=== PATIENT | female | born 1970 | race Hispanic/Latino ===

== ENCOUNTER 2018-04-04 16:55 | Observation (INO) | payer MEDICARE ==
[~2018-04-04] VITALS: Ht 157.5 cm; Wt 55.4 kg
--- OUTSIDE RECORDS SUMMARY | 2018-04-04 16:57 | XMS REPORT ---
Author Author Soniya Gonzalez [facility] eClinicalWorks Address Unknown Phone Unavailable Care Team Providers Care Billiard Table Repairer Name Role Phone Soniya Gonzalez Unavailable Allergies, Adverse Reactions, Alerts Substance Reaction Event Type Sudafed jitters Drug Allergy Amoxicillin hives/vomiting Drug Allergy Problems Problem Type Condition Code Onset Dates Condition Status Problem Autoimmune hepatitis K75.4 Active Problem Lupus M32.9 Active Problem Polyarthritis M13.0 Active Problem Psoriasis L40.9 Active Assessment Polyarthritis M13.0 Active Medications Medication Code System Code Instructions Start Date End Date Status Dosage Amagon [facility] [address]-02 10-325 MG Orally every 6 hrs Active 1 tablet as needed Medrol Dose Eze [facility] 30133471178 4mg Orally once a day December 04, 2016 Active as directed Otezla [facility] [address]-53 30 MG Orally Twice a day Active 1 tablet Ciprofloxacin HCl [facility] [address]-97 500 MG Orally Twice a day December 10, 2016 Active 1 tablet Vital Signs Date/Time: 2016 Cardiac Monitoring Heart Rate 86 /min Blood Pressure Diastolic 70 mm Hg Blood Pressure Systolic 124 mm Hg Temperature 97.8 F Results No Known Results Summary Purpose eClinicalWorks Submission
--- OUTSIDE RECORDS SUMMARY | 2018-04-04 16:57 | XMS REPORT | Continuity of Care Document ---
Author Author [facility] Address Unknown Phone Unavailable Problems Problem Status Onset Date Classification Date Reported Comments Source Lupus Active Problem 09/08/2017 Saurabh Garcia Psoriasis Active Problem 09/08/2017 Saurabh Garcai Polyarthritis Active Problem 09/08/2017 Saurabh Garcia Autoimmune hepatitis Active Problem 09/08/2017 Saurabh Garcia Medications Medication Details Route Status Patient Instructions Ordering Provider Order Date Source Ciprofloxacin HCl 1 tablet Orally Active 500 MG Orally Twice a day Gonzalez 12/10/2016 Saurabh Garcia Medrol Dose Eze as directed Orally Active 4mg Orally once a day Gonzalez 12/04/2016 Saurabh Garcia [place] 1 tablet as needed Orally Active 10-325 MG Orally every 6 hrs Harrah Saurabheugenio Garcia Otezla 1 tablet Orally Active 30 MG Orally Twice a day Harrah Saurabh Garica Allergies, Adverse Reactions, Alerts Substance Category Reaction Severity Reaction type Status Date Reported Comments Source Sudafed Adverse Reaction jitters Adverse Reaction Active 2016 Saurabh Garcia Amoxicillin Adverse Reaction hives/vomiting Adverse Reaction Active 2016 Saurabh Garcia Immunizations Immunization Date Given Site Status Last Updated Comments Source Results Order Name Results Value Reference Range Date Interpretation Comments Source Vital Signs Vital Sign Value Date Comments Source Heart Rate 86 2016 Saurabh Garcia Diastolic (mm Hg) 70 2016 Saurabh Garcia Systolic (mm Hg) 124 2016 Saurabh Garcia Temperature Oral (F) 97.8 F 2016 Saurabh Garcia Encounters Location Location Details Encounter Type Encounter Number Reason For Visit Attending Provider ADM Date DC Date Status Source Procedures Procedure Code Date Perfomer Comments Source
--- OUTSIDE RECORDS SUMMARY | 2018-04-04 16:57 | XMS REPORT ---
Author Author Sanjiv Garcia Organization eClinicalWorks Address Unknown Phone Unavailable Care Team Providers Care Resin Coater Name Role Phone Sanjiv Garcia CP Unavailable Allergies No Known Allergies Problems Problem Type Condition Code Onset Dates Condition Status Problem Autoimmune hepatitis K75.4 Active Problem Lupus M32.9 Active Problem Polyarthritis M13.0 Active Problem Psoriasis L40.9 Active Medications No Known Medications Results No Known Results Summary Purpose eClinicalWorks Submission
--- OUTSIDE RECORDS SUMMARY | 2018-04-04 16:57 | XMS REPORT ---
Author Author Sanjiv Garcia Organization eClinicalWorks Address Unknown Phone Unavailable Care Team Providers Care Track Template Maker Name Role Phone Sanjiv Garcia CP Unavailable Allergies No Known Allergies Problems Problem Type Condition Code Onset Dates Condition Status Problem Lupus M32.9 Active Problem Psoriasis L40.9 Active Problem Polyarthritis M13.0 Active Problem Autoimmune hepatitis K75.4 Active Medications No Known Medications Results No Known Results Summary Purpose eClinicalWorks Submission
[2018-04-04] MEDS ORDERED: SODIUM CHLORIDE 0.9% 1000ML 1,000 ML IV STA (17:06)
[2018-04-04] MEDS ORDERED: DICYCLOMINE HCL 20 MG/2 ML VIAL IM ONE (17:15)
[2018-04-04] MEDS ORDERED: PROMETHAZINE HCL (IM) 25 MG/ML VIAL IM ONE (17:15)
[2018-04-04] MEDS ORDERED: KETOROLAC TROMETHAMINE 30 MG/ML VIAL IV STA (18:08)
[2018-04-04] MEDS ORDERED: ONDANSETRON HCL 4 MG ORAL DISINTEGRATING TAB PO NR (18:45)
[2018-04-04 18:47] LABS: ALANINE AMINOTRANSFERASE 32 IU/L (0-55); ALBUMIN 4.9 g/dL (3.5-5.0); ALBUMIN/GLOBULIN RATIO 1.3 (0.8-2.0); ALKALINE PHOSPHATASE 108 IU/L (40-150); ANION GAP 23.7 mmol/L (8-16); BLOOD UREA NITROGEN 9 mg/dL (7-26); BUN/CREATININE RATIO 11 (6-25); CALCIUM 9.9 mg/dL (8.4-10.2); CARBON DIOXIDE 18 mmol/L (22-29); CHLORIDE 103 mmol/L (98-107); CREATININE, SERUM 0.84 mg/dL (0.57-1.11); EST GLOMERULAR FILTRATION RATE > 60 ML/MIN (60-); GLUCOSE 137 mg/dL (74-118); LIPASE 18 U/L (8-78); POTASSIUM 3.7 mmol/L (3.5-5.1); SODIUM 141 mmol/L (136-145)
[2018-04-04] MEDS ORDERED: METOCLOPRAMIDE HCL 10 MG/2ML VIAL IV ONE (19:15)
[2018-04-04] MEDS ORDERED: DIPHENHYDRAMINE HCL INJ 50 MG/ML VIAL IV ONE (19:15)
[2018-04-04] MEDS ORDERED: MORPHINE SULFATE 5 MG/ML VIAL IV ONE (20:30)
--- NOTE | 2018-04-04 20:34 | Diagnostic Imaging Report ---
EXAM: CT ABDOMEN AND PELVIS WITH IV CONTRAST INDICATION: Nausea, vomiting, abdominal pain COMPARISON: None TECHNIQUE: The abdomen and pelvis were scanned using a multidetector helical scanner. Coronal and sagittal reformations were obtained. Dose modulation, iterative reconstruction, and/or weight based adjustment of the mA/kV was utilized to reduce the radiation dose to as low as reasonably achievable. Routine protocol performed. IV Contrast: 100 cc Isovue-370 Oral Contrast: None CTDIvol has been reviewed. It is below the limits set by the Radiation Protocol Committee (RPC). FINDINGS: LOWER THORAX: No consolidations LIVER: No masses BILIARY: Cholecystectomy. No ductal dilation. SPLEEN: No masses PANCREAS: No masses ADRENALS: No nodules KIDNEYS: No enhancing masses. No hydronephrosis. GI TRACT: No wall thickening or obstruction. Normal appendix. VESSELS: Unremarkable PERITONEUM/RETROPERITONEUM: No free air or fluid LYMPH NODES: No lymphadenopathy REPRODUCTIVE ORGANS: Hysterectomy. Normal ovaries. BLADDER: Normal SOFT TISSUES: Bilateral breast implants. BONES: No suspicious bone lesions. IMPRESSION: Normal CT of the abdomen and pelvis. Signed by: Dr. Noelle Diaz M.D. on 04/04/2018 8:31 PM
--- OUTSIDE RECORDS SUMMARY | 2018-04-04 20:39 | XMS REPORT ---
Author Author [facility] Address Unknown Phone Unavailable Care Team Providers Care Fire Medic Name Role Phone Naif EDWARD Unavailable Unavailable Problems This patient has no known problems. Allergies, Adverse Reactions, Alerts This patient has no known allergies or adverse reactions. Medications This patient has no known medications. Results Test Description Test Time Test Comments Text Results Atomic Results Result Comments CT ABD/PEL WITH CONTRAST-HOPD 2018-04-04 20:24:00 [place] [id number] Patient Name: JANETTE SONG MR #: [id number] : 1970 Age/Sex: 47/F Req #: [id number] Adm Physician: Ordered by: IRTA EDWARD MD Report #: [id number] Location: [facility] Room/Bed: Procedure: [id number] HOPD/CT ABD/PEL WITH CONTRAST-HOPD Exam Date: 04/04/18 Exam Time: 1956 REPORT STATUS: Signed EXAM: CT ABDOMEN AND PELVIS WITH IV CONTRAST INDICATION: Nausea, vomiting, abdominal pain COMPARISON: None TECHNIQUE: The abdomen and pelvis were scanned using a multidetector helical scanner. Coronal and sagittal reformations were obtained. Dose modulation, iterative reconstruction, and/or weight based adjustment of the mA/kV was utilized to reduce the radiation dose to as low as reasonably achievable. Routine protocol performed. IV Contrast: 100 cc Isovue-370 Oral Contrast: None CTDIvol has been reviewed. It is below the limits set by the Radiation Protocol Committee (RPC). FINDINGS: LOWER THORAX: No consolidations LIVER: No masses BILIARY: Cholecystectomy. No ductal dilation. SPLEEN: No masses PANCREAS: No masses ADRENALS: No nodules KIDNEYS: No enhancing masses. No hydronephrosis. GI TRACT: No wall thickening or obstruction. Normal appendix. VESSELS: Unremarkable PERITONEUM/RETROPERITONEUM: No free air or fluid LYMPH NODES: No lymphadenopathy REPRODUCTIVE ORGANS: Hysterectomy. Normal ovaries. BLADDER: Normal SOFT TISSUES: Bilateral breast implants. BONES: No suspicious bone lesions. IMPRESSION: Normal CT of the abdomen and pelvis. Signed by: Dr. Manuel Diaz M.D. on 04/04/2018 8:31 PM Dictated By: MANUEL DIAZ MD 30 Transcribed By: CAMILO on 04/04/182030 COPY TO: RITA EDWARD MD
[2018-04-04 22:15] VITALS: BP 177/82
[2018-04-04] MEDS ORDERED: SODIUM CHLORIDE 0.9% 50ML 50 ML ONE (23:02)
[2018-04-04] MEDS: SODIUM CHLORIDE 0.9% 1000ML 1,000 ML IV SCH (23:13)
[2018-04-04] MEDS: PROMETHAZINE HCL (IM) 25 MG/ML VIAL IM PRN (23:13)
[2018-04-04 23:27] LABS: BASOPHILS % 0.2 % (0.0-1.0); HEMATOCRIT 33.9 % (34.2-44.1); HEMOGLOBIN 11.9 g/dL (12.0-16.0); LYMPHOCYTES # (AUTO) 0.8 (1.0-3.2); MEAN CORPUSCULAR HEMOGLOBIN 33.2 pg (28-32); MEAN CORPUSCULAR HGB CONC 35.1 g/dL (31-35); MEAN CORPUSCULAR VOLUME 94.7 fL (81-99); MONOCYTES # (AUTO) 0.1 (0.2-0.8); NEUTROPHILS # (AUTO) 12.2 (2.1-6.9); NEUTROPHILS % 92.4 % (38.7-80.0); PLATELET COUNT 277 x10e3/uL (140-360); RED BLOOD COUNT 3.58 x10e6/uL (3.6-5.1); RED CELL DISTRIBUTION WIDTH 11.9 % (11.7-14.4)
[2018-04-04 23:39] VITALS: BP 177/82
[2018-04-05] VITALS (8 sets, daily range): BP systolic 142–181; BP diastolic 73–89
[2018-04-05] MEDS: ACETAMINOPHEN 1000 MG/100 ML IV PRN ×2 (00:57→07:00)
[2018-04-05] MEDS ORDERED: SODIUM CHLORIDE 0.9% 50ML 50 ML ONE ×3 (03:34→20:40)
[2018-04-05] MEDS: PROMETHAZINE HCL (IM) 25 MG/ML VIAL IM PRN ×2 (03:37→07:55)
[2018-04-05] MEDS: HYDRALAZINE HCL 20 MG/ML VIAL IV PRN ×2 (04:19→16:39)
[2018-04-05] MEDS: SODIUM CHLORIDE 0.9% 1000ML 1,000 ML IV SCH ×4 (05:26→21:20)
[2018-04-05] MEDS: LEVOFLOXACIN 500MG/D5W 100ML 100 ML IV SCH (05:26)
[2018-04-05] MEDS ORDERED: MORPHINE SULFATE 2 MG/ML SYR ONE (09:12)
[2018-04-05] MEDS: MORPHINE SULFATE 2 MG/ML SYR IV PRN ×2 (09:23→13:47)
[2018-04-05] MEDS: ONDANSETRON HCL INJ 2 MG/ML VIAL IV PRN ×2 (13:47→17:32)
[2018-04-05] MEDS ORDERED: DIPHENHYDRAMINE HCL INJ 50 MG/ML VIAL IV PRN (16:30)
[2018-04-05] MEDS ORDERED: LORAZEPAM INJ 2 MG/ML VIAL IV ONE (19:15)
[2018-04-05] MEDS ORDERED: HYDROMORPHONE 1MG/1ML INJ IV PRN (19:15)
[2018-04-05] MEDS ORDERED: IOPAMIDOL 370 MG/ML 200 ML INFUS..BTL INJ ONE (20:40)
--- NOTE | 2018-04-05 20:43 | Diagnostic Imaging Report ---
EXAM: ABDOMEN-1VIEW (KUB) DATE: 04/05/2018 6:54 PM INDICATION: Emesis COMPARISON: 04/04/2018 CT, no report available FINDINGS: Bowel Gas Pattern: Non-obstructive. Pneumoperitoneum: None. Suspicious Calcifications: None. Other: Cholecystectomy clips. IMPRESSION: No acute findings. Signed by: Dr. Teto Sol MD on 04/05/2018 8:40 PM
[2018-04-05] MEDS: PANTOPRAZOLE 40 MG 10ML VIAL IV SCH (21:26)
[2018-04-05] MEDS: HYDROMORPHONE 2MG/ML 2 MG/ML ML IV PRN (21:26)
[2018-04-06] VITALS (7 sets, daily range): BP systolic 141–159; BP diastolic 72–85
[2018-04-06] MEDS: HYDROMORPHONE 2MG/ML 2 MG/ML ML IV PRN ×4 (01:48→20:45)
[2018-04-06] MEDS: SODIUM CHLORIDE 0.9% 1000ML 1,000 ML IV SCH ×3 (04:20→18:24)
[2018-04-06] MEDS: LEVOFLOXACIN 500MG/D5W 100ML 100 ML IV SCH (05:00)
[2018-04-06 05:29] LABS: BASOPHILS % 0.1 % (0.0-1.0); HEMOGLOBIN 12.2 g/dL (12.0-16.0); LYMPHOCYTES # (AUTO) 2.7 (1.0-3.2); LYMPHOCYTES % 18.8 % (18.0-39.1); MEAN CORPUSCULAR HEMOGLOBIN 33.4 pg (28-32); MEAN CORPUSCULAR HGB CONC 34.9 g/dL (31-35); MEAN CORPUSCULAR VOLUME 95.9 fL (81-99); MONOCYTES % 7.2 % (4.4-11.3); NEUTROPHILS # (AUTO) 10.3 (2.1-6.9); NEUTROPHILS % 73.4 % (38.7-80.0); PLATELET COUNT 292 x10e3/uL (140-360); RED BLOOD COUNT 3.65 x10e6/uL (3.6-5.1); RED CELL DISTRIBUTION WIDTH 12.4 % (11.7-14.4)
[2018-04-06 05:56] LABS: ALANINE AMINOTRANSFERASE 28 IU/L (0-55); ALBUMIN 3.7 g/dL (3.5-5.0); ALBUMIN/GLOBULIN RATIO 1.5 (0.8-2.0); ALKALINE PHOSPHATASE 74 IU/L (40-150); ANION GAP 11.3 mmol/L (8-16); BLOOD UREA NITROGEN 6 mg/dL (7-26); BUN/CREATININE RATIO 8 (6-25); CALCIUM 8.8 mg/dL (8.4-10.2); CARBON DIOXIDE 26 mmol/L (22-29); CHLORIDE 104 mmol/L (98-107); CREATININE, SERUM 0.72 mg/dL (0.57-1.11); EST GLOMERULAR FILTRATION RATE > 60 ML/MIN (60-); GLUCOSE 119 mg/dL (74-118); POTASSIUM 3.3 mmol/L (3.5-5.1); SODIUM 138 mmol/L (136-145)
[2018-04-06 06:15] LABS: MAGNESIUM 1.8 MG/DL (1.3-2.1)
[2018-04-06] MEDS: PANTOPRAZOLE 40 MG 10ML VIAL IV SCH ×2 (08:19→21:10)
[2018-04-06] MEDS: ONDANSETRON HCL INJ 2 MG/ML VIAL IV PRN ×3 (09:10→20:40)
[2018-04-06 09:11] LABS: BILIRUBIN,URINE NEGATIVE (NEGATIVE); CLARITY,URINE CLEAR (CLEAR); COLOR,URINE YELLOW (YELLOW); KETONES,URINE 1+ (NEGATIVE); LEUKOCYTE ESTERASE ,URINE NEGATIVE (NEGATIVE); NITRITE,URINE NEGATIVE (NEGATIVE); PROTEIN,URINE DIPSTICK NEGATIVE (NEGATIVE); URINE UROBILINOGEN 0.2 mg/dL (0.2 - 1)
[2018-04-06] MEDS: LORAZEPAM INJ 2 MG/ML VIAL IV PRN ×2 (09:11→23:07)
[2018-04-06 09:24] LABS: BACTERIA,URINE RARE /HPF
[2018-04-06 09:25] LABS: EPITHELIAL CELLS,URINE RARE /LPF
[2018-04-07] VITALS (7 sets, daily range): BP systolic 117–148; BP diastolic 60–91
[2018-04-07] MEDS: SODIUM CHLORIDE 0.9% 1000ML 1,000 ML IV SCH ×3 (01:51→14:50)
[2018-04-07] MEDS: LEVOFLOXACIN 500MG/D5W 100ML 100 ML IV SCH (05:17)
[2018-04-07] MEDS: PANTOPRAZOLE 40 MG 10ML VIAL IV SCH (08:10)
[2018-04-07] MEDS: ONDANSETRON HCL INJ 2 MG/ML VIAL IV PRN ×2 (08:10→12:04)
[2018-04-07] MEDS: LORAZEPAM INJ 2 MG/ML VIAL IV PRN (08:10)
[2018-04-07] MEDS: HYDROMORPHONE 2MG/ML 2 MG/ML ML IV PRN ×2 (08:10→12:04)
[2018-04-07] MEDS ORDERED: FENTANYL CITRATE/PF 100MCG/2 ML INJ ONE (12:00)
[2018-04-07] MEDS ORDERED: MIDAZOLAM HCL 2 MG/2 ML VIAL ONE (12:00)
[2018-04-07] MEDS ORDERED: PROPOFOL IV EMULSION 10 MG/ML 20 ML VIAL ONE (17:25)
== END 2018-04-07 18:33 | disposition home or self-care (01) ==
LOC: FSED 16:55 → ERHOLD 20:12 → IMCU 22:03
PROVIDERS: ADMIT Internal Medicine; ATTEND Internal Medicine
DX: K21.0 Gastro-esophageal reflux disease with esophagitis (principal); E86.0 Dehydration; M32.9 Systemic lupus erythematosus, unspecified; I10 Essential (primary) hypertension; Z82.49 Family history of ischemic heart disease and other diseases of the circulatory system; Z88.1 Allergy status to other antibiotic agents; Z88.5 Allergy status to narcotic agent; K29.70 Gastritis, unspecified, without bleeding; K44.9 Diaphragmatic hernia without obstruction or gangrene
CPT/HCPCS: 36415 ×2; 43239; 74018; 74177; 80053 ×3; 81001; 81003; 82150; 83690 ×2; 83735; 85025 ×3; 88305; 88312; 99284; G0378 ×4; J0131; J0360; J0500; J1170 ×3; J1200 ×2; J1885; J1956 ×3; J2060 ×3; J2250; J2270 ×2; J2405 ×3; J2550 ×2; J2704; J2765; J7030 ×4; Q9967

== ENCOUNTER 2018-10-20 21:30 | Emergency (ER) | payer MEDICARE ==
[~2018-10-20] VITALS: Ht 157.5 cm; Wt 55.3 kg
== END 2018-10-20 21:59 | disposition home or self-care (01) ==
LOC: ER 21:30
DX: M54.41 Lumbago with sciatica, right side (principal); M79.7 Fibromyalgia; M32.9 Systemic lupus erythematosus, unspecified; Z82.49 Family history of ischemic heart disease and other diseases of the circulatory system
CPT/HCPCS: 99282

== ENCOUNTER 2018-11-02 16:25 | Inpatient (IN) | payer MEDICARE ==
[~2018-11-02] VITALS: Ht 149.9 cm; Wt 52.6 kg
[2018-11-02 17:56] LABS: BASOPHILS % 0.2 % (0.0-1.0); EOSINOPHILS # (AUTO) 0.1 (0.0-0.4); EOSINOPHILS % 0.3 % (0.0-6.0); HEMATOCRIT 42.7 % (34.2-44.1); HEMOGLOBIN 14.2 g/dL (12.0-16.0); LYMPHOCYTES # (AUTO) 0.9 (1.0-3.2); LYMPHOCYTES % 4.5 % (18.0-39.1); MEAN CORPUSCULAR HEMOGLOBIN 32.3 pg (28-32); MEAN CORPUSCULAR HGB CONC 33.3 g/dL (31-35); MEAN CORPUSCULAR VOLUME 97.3 fL (81-99); MONOCYTES # (AUTO) 0.7 (0.2-0.8); MONOCYTES % 3.3 % (4.4-11.3); NEUTROPHILS # (AUTO) 18.1 (2.1-6.9); NEUTROPHILS % 91.1 % (38.7-80.0); PLATELET COUNT 276 x10e3/uL (140-360); RED BLOOD COUNT 4.39 x10e6/uL (3.6-5.1); RED CELL DISTRIBUTION WIDTH 12.1 % (11.7-14.4)
[2018-11-02 18:07] LABS: INR 1.03
[2018-11-02 18:08] LABS: PARTIAL THROMBOPLASTIN TIME 36.2 seconds (23.8-35.5)
[2018-11-02 18:11] LABS: ALANINE AMINOTRANSFERASE 28 IU/L (0-55); ALBUMIN 3.2 g/dL (3.5-5.0); ALBUMIN/GLOBULIN RATIO 0.7 (0.8-2.0); ALKALINE PHOSPHATASE 150 IU/L (40-150); AMYLASE 61 U/L (25-125); ANION GAP 13.4 mmol/L (8-16); BLOOD UREA NITROGEN 10 mg/dL (7-26); BUN/CREATININE RATIO 13 (6-25); CALCIUM 10.3 mg/dL (8.4-10.2); CARBON DIOXIDE 30 mmol/L (22-29); CHLORIDE 96 mmol/L (98-107); CREATININE, SERUM 0.75 mg/dL (0.57-1.11); EST GLOMERULAR FILTRATION RATE > 60 ML/MIN (60-); GLUCOSE 115 mg/dL (74-118); LIPASE 10 U/L (8-78); POTASSIUM 4.4 mmol/L (3.5-5.1); SODIUM 135 mmol/L (136-145)
--- NOTE | 2018-11-02 19:01 | Diagnostic Imaging Report ---
CT Abdomen And Pelvis with Intravenous Contrast INDICATION: Nausea, vomiting, fever ^abd pain with leukocytosis ^[id number] ^[id number] TECHNIQUE: Thin collimation axial images obtained from the diaphragm to the level of the pubic symphysis following the uneventful administration of 100 cc of low osmolar, nonionic intravenous contrast. Dose reduction techniques used: Automated exposure control, adjustment of the mAs and/or kVp according to patient size, standardized low-dose protocol, and/or iterative reconstruction technique. RADIATION DOSE: Total DLP: 203.18 mGy*cm Estimated effective dose: (DLP x 0.015 x size factor) mSv CTDIvol has been reviewed. It is below the limits set by the Radiation Protocol Committee (RPC). COMPARISON: CT abdomen/pelvis 04/04/2018. ABDOMEN FINDINGS: Lung Bases: Clear. The visualized portions of the mediastinum are normal.. Liver: Normal attenuation. No evidence for mass. Gallbladder: Absent. No biliary ductal dilatation. Pancreas: Normal attenuation without mass or ductal dilatation. Spleen: Normal in size. No evidence of mass.. Adrenal Glands: No evidence for mass. Kidneys: Right: Heterogeneous enhancement of the upper pole and proximal interpolar cortex is new. No perinephric inflammation. No soft tissue mass. No hydronephrosis. Left: Heterogeneous enhancement of the upper pole and proximal interpolar region is new. No perinephric inflammation. No soft tissue mass. No hydronephrosis. Lymph Nodes: No enlarged abdominal lymph nodes. A left periaortic lymph node measures 11 mm and is new.. Aorta: Normal in diameter. Two arteries supply the right kidney. A single artery supplies the left kidney. PELVIS FINDINGS: Bowel: Stomach: Normal. Small Bowel: Normal in caliber with normal wall thickness. Large Bowel: Mild to moderate burden of stool in the right colon, proximal transverse colon. No dilatation, mural thickening, or pericolonic inflammation. Appendix: Normal appendix. Bladder: Underdistended but otherwise normal. Ureters: No ureteral dilatation. There is mucosal hyperemia of the proximal and mid left ureter. The uterus is absent. There are no adnexal masses. No free fluid or fluid collection. Bones: Stable levoscoliosis. No focal osseous lesions. Soft tissues: Bilateral breast prostheses are stable. IMPRESSION: 1. New heterogeneous enhancement of the kidneys is suggestive of pyelonephritis. Mild hyperemia of the proximal left ureter is suggestive of UTI. Please correlate with urinalysis and urine culture. A prominent left periaortic lymph node is likely reactive. 2. No evidence for bowel obstruction or inflammation. Normal appendix. 3. Cholecystectomy and hysterectomy. Signed by: Dr. Milton Sommer MD on 11/02/2018 6:58 PM
[2018-11-02] MEDS ORDERED: IOPAMIDOL 370 MG/ML 200 ML INFUS..BTL INJ ONE (19:38)
[2018-11-02] MEDS ORDERED: SODIUM CHLORIDE 0.9% 50ML 50 ML ONE (19:38)
[2018-11-02 20:14] LABS: BILIRUBIN,URINE NEGATIVE (NEGATIVE); CLARITY,URINE CLEAR (CLEAR); COLOR,URINE YELLOW (YELLOW); KETONES,URINE 1+ (NEGATIVE); LEUKOCYTE ESTERASE ,URINE TRACE (NEGATIVE); NITRITE,URINE POSITIVE (NEGATIVE); PROTEIN,URINE DIPSTICK 1+ (NEGATIVE); URINE UROBILINOGEN 1 mg/dL (0.2 - 1)
[2018-11-02 20:16] LABS: AMPHETAMINES SCREEN,URINE NEGATIVE (NEGATIVE); BENZODIAZEPINES SCREEN,URINE NEGATIVE (NEGATIVE); PHENCYCLIDINE SCREEN,URINE NEGATIVE (NEGATIVE)
[2018-11-02 20:28] LABS: BACTERIA,URINE MANY /HPF; EPITHELIAL CELLS,URINE FEW /LPF
[2018-11-02] MEDS ORDERED: ONDANSETRON HCL INJ 2MG/ML 2ML 2 MG/ML VIAL IV PRN (20:45)
[2018-11-02] MEDS ORDERED: MORPHINE SULFATE INJ 4 MG/ML INJ 1ML IV PRN (20:45)
--- NOTE | 2018-11-02 20:57 | NUR ---
Report Given to YOMAIRA Villegas pt stable for transport
[2018-11-02 21:00] VITALS: BP 119/56
[2018-11-02] MEDS: SODIUM CHLORIDE 0.9% 1000ML 1,000 ML IV SCH (21:03)
[2018-11-02] MEDS: CEFTRIAXONE SOD 1 GM/NS 50 ML 50 ML IV SCH (21:03)
[2018-11-02 21:06] VITALS: BP 119/56
--- NOTE | 2018-11-02 21:06 | NUR ---
RECEIVED PATIENT FROM ER VIA STRETCHER. PATIENT STATES PAIN IS 5/10 AT THIS TIME, GENERALIZED, WELL HEADACHE AND EYE PAIN DUE TO FEVER. NO S&S OF DISTRESS NOTED. L AC 20G IV IS ASYMPTOMATIC, INTACT, AND PATENT. SKIN INTACT, PATIENT REPORTS HAVING RECENTLY HAD SPRAY PITTS, BUT IT IS RUBBING OFF IN PLACES. NO EDEMA NOTED. LUNG SOUNDS CLEAR. BOWEL SOUNDS ACTIVE. PATIENT BELIEVES LAST BM WAS 10/29 OR 10/30 DUE TO NOT EATING MUCH SINCE THEN FROM THE N/V. BED LOCKED IN LOWEST POSITION, SIDE RAILS UPX2, CALL LIGHT IN REACH.
--- NOTE | 2018-11-02 21:45 | NUR ---
CALL PLACED TO MD POWELL CONCERNING TEMP OF 101.6. WAITING WELDER TACK BACK.
--- NOTE | 2018-11-02 22:20 | NUR ---
CALL PLACED AGAIN TO MD POWELL, DIFFERENT NUMBER. RECEIVED NEW ORDERS.
[2018-11-02] MEDS: HYDROMORPHONE 2MG/ML 2 MG/ML ML IV PRN (22:55)
[2018-11-02] MEDS: ACETAMINOPHEN 325 MG TAB PO PRN (22:56)
[2018-11-02] MEDS: PROMETHAZINE HCL 25 MG TAB PO PRN (23:00)
[2018-11-03] VITALS (8 sets, daily range): BP systolic 100–113; BP diastolic 53–59
[2018-11-03] MEDS: SODIUM CHLORIDE 0.9% 1000ML 1,000 ML IV SCH ×2 (04:14→13:41)
[2018-11-03] MEDS: HYDROMORPHONE 2MG/ML 2 MG/ML ML IV PRN ×4 (04:14→19:02)
[2018-11-03] MEDS: ACETAMINOPHEN 325 MG TAB PO PRN ×2 (06:42→15:55)
[2018-11-03] MEDS: PROMETHAZINE HCL 25 MG TAB PO PRN ×3 (06:42→21:32)
[2018-11-03 06:44] LABS: BASOPHILS % 0.2 % (0.0-1.0); EOSINOPHILS # (AUTO) 0.1 (0.0-0.4); EOSINOPHILS % 0.3 % (0.0-6.0); HEMATOCRIT 37.5 % (34.2-44.1); HEMOGLOBIN 12.8 g/dL (12.0-16.0); LYMPHOCYTES # (AUTO) 1.1 (1.0-3.2); MEAN CORPUSCULAR HEMOGLOBIN 32.9 pg (28-32); MEAN CORPUSCULAR HGB CONC 34.1 g/dL (31-35); MEAN CORPUSCULAR VOLUME 96.4 fL (81-99); MONOCYTES % 4.9 % (4.4-11.3); NEUTROPHILS # (AUTO) 18.3 (2.1-6.9); NEUTROPHILS % 87.7 % (38.7-80.0); PLATELET COUNT 224 x10e3/uL (140-360); RED BLOOD COUNT 3.89 x10e6/uL (3.6-5.1); RED CELL DISTRIBUTION WIDTH 12.1 % (11.7-14.4)
[2018-11-03 07:13] LABS: ALANINE AMINOTRANSFERASE 23 IU/L (0-55); ALBUMIN 2.4 g/dL (3.5-5.0); ALBUMIN/GLOBULIN RATIO 0.6 (0.8-2.0); ALKALINE PHOSPHATASE 147 IU/L (40-150); ANION GAP 12.5 mmol/L (8-16); BLOOD UREA NITROGEN 8 mg/dL (7-26); BUN/CREATININE RATIO 11 (6-25); CALCIUM 9.1 mg/dL (8.4-10.2); CARBON DIOXIDE 28 mmol/L (22-29); CHLORIDE 100 mmol/L (98-107); CREATININE, SERUM 0.71 mg/dL (0.57-1.11); EST GLOMERULAR FILTRATION RATE > 60 ML/MIN (60-); GLUCOSE 113 mg/dL (74-118); POTASSIUM 3.5 mmol/L (3.5-5.1); SODIUM 137 mmol/L (136-145)
--- NOTE | 2018-11-03 07:20 | NUR ---
PATIENT IS AWAKE AND IN STABLE CONDITION WITH NO S/S OF RESPIRATORY DISTRESS. PATIENT C/O GENERALIZE PAIN 02/24- MEDICATION IS NOT AVAILABLE AT THIS TIME. IV FLUIDS INFUSING. BOYFRIEND PRESENT IN ROOM. CALL LIGHT IS WITHIN REACH, PATIENT INSTRUCTED TO CALL FOR ASSISTANCE NEEDED.
[2018-11-03 09:41] LABS: PLATELET ESTIMATE ADEQUATE; PLATELET MORPHOLOGY COMMENT NORMAL; RBC MORPHOLOGY COMMENT NORMAL
[2018-11-03 09:52] LABS: LYMPHOCYTES % (MANUAL) 3 % (19-48); NEUTROPHILS % (MANUAL) 95 % (40-74)
[2018-11-03 09:53] LABS: MONOCYTES % (MANUAL) 2 % (3.4-9.0)
--- NOTE | 2018-11-03 12:05 | NUR ---
ROUNDED WITH DR. NAYELY DONG CONSULT FOR DR. SARAH AND CHANGE PATIENT'S DIET TO CLEAR LIQUID
[2018-11-03] MEDS: LEVOFLOXACIN 500MG/D5W 100ML 100 ML IV SCH (13:41)
--- NOTE | 2018-11-03 14:00 | NUR ---
DISCUSSED IN BARRIER ROUNDS. PT ON DILAUDID AND IV ABX, NO DOCUMENTED PLAN PER MD.
--- NOTE | 2018-11-03 14:36 | History and Physical ---
CHIEF COMPLAINT: Right flank pain. HISTORY OF PRESENT ILLNESS: This is a 47-year-old female with known chronic urinary tract infections in the past, also has a history of lupus, who presents to the ED with complaints of right-sided flank pain that has been ongoing for the last four days now. The patient reports fever at home. She has had multiple pyelonephritis in the past. Denies any cough, congestion, or any issues. Does complain of dysuria, but no hematuria. The patient was seen and evaluated at bedside on the medical floor. She is currently doing well with no other issues at this time. Imaging studies are consistent with pyelonephritis and her urine was consistent with a urinary tract infection. REVIEW OF SYSTEMS: Pertinent positives: Right-sided flank pain, dysuria. Pertinent negatives: Denies any chest pain, palpitation, nausea, hematuria, frequency, urgency, lightheadedness, dizziness, abdominal pain, headaches, shortness of breath, cough, congestion, or any other complaints. The rest of 14-point review of systems have been reviewed with the patient and are negative. ALLERGIES: AMOXACILLIN AND MORPHINE. HOME MEDICATIONS: None reported. PAST MEDICAL HISTORY: She reports having systemic lupus PAST SURGICAL HISTORY: Reports none. FAMILY HISTORY: Hypertension and diabetes. SOCIAL HISTORY: No drugs. No alcohol. Does not smoke. Good social support. PHYSICAL EXAMINATION: VITAL SIGNS: Temperature is 96.9, pulse 75, respiratory rate is 16, blood pressure was 103/57, and pulse ox 95% on room air. GENERAL: Not in acute distress. Alert and oriented x3. Cooperative on examination. HEENT: Head is normocephalic and atraumatic. Eyes; pupils are equal, round, and reactive to light bilaterally. Extraocular movements are intact bilaterally. Throat, no evidence of erythema or exudates in the posterior pharynx. Has poor dentition. NECK: Supple. Good range of motion. PULMONARY: Clear to auscultation bilaterally. No wheezing, no rales, no rhonchi, no crackles appreciated. CARDIOVASCULAR: Positive S1, S2. No murmurs, rubs, or gallops appreciated. ABDOMEN: Soft, nondistended, and nontender to palpation. Bowel sounds present. MUSCULOSKELETAL: Strength is 5/5 throughout. No evidence of any muscle deficits on examination. No weakness appreciated. The patient has right-sided flank pain on palpation. NEUROLOGICAL: Cranial nerves 2 through 12 grossly intact. No evidence of any neurological deficits on exam. SKIN: Intact. Warm to touch. Good cap refill. PSYCHIATRIC: Normal affect and mood. EXTREMITIES: No edema. Good range of motion throughout. LABORATORY DATA: Lab findings show white count was 20, hemoglobin 12.8, hematocrit is 37.5, and platelets of 224. PT 14, INR 1, PTT 36. Chemistry; sodium 137, potassium 3.5, chloride 100, bicarb 28, anion gap of 12, BUN 23, creatinine 0.71, glucose 113, calcium is 9.1. LFTs were within normal range. Albumin 2.4. Lipase 10. Amylase 61. Urinalysis concerning for UTI. Urine drug screen positive for cannabinoids and opioids. MICROBIOLOGY: Urine culture positive for gram-negative renae. IMAGING STUDIES: CT abdomen and pelvis consistent with heterogeneous mass in the kidney suggestive of pyelonephritis. Mild hyperuremia of the proximal left ureter suggestive of UTI. Prominent left periaortic lymph nodes, likely reactive. No evidence of bowel obstruction or inflammation. Normal appendix. IMPRESSION: 1. Sepsis with leukocytosis secondary to pyelonephritis. 2. Urinary tract infection with underlying pyelonephritis. 3. Reports history of systemic lupus. 4. Positive urine drug screen for cannabinoids and opioids. PLAN: At this time, CT abdomen and pelvis consistent with pyelonephritis. She is on IV antibiotics. We will order blood cultures x2, monitor urine culture. Consult with ID as the patient has chronic urinary tract infection and pyelonephritis. Resume same home medications once they are available. Put on Lovenox for DVT prophylaxis. Encourage ambulation, regular diet. We will get a.m. labs as well. MD ROBERT Eddy/LAKISHA /[id number]
--- NOTE | 2018-11-03 16:02 | Consultation ---
DATE OF CONSULTATION: REASON FOR CONSULTATION: Sepsis, UTI, pyelonephritis. HISTORY OF PRESENT ILLNESS: This patient is a very pleasant 47-year-old female, who has history of lupus. The patient has history of UTI before. She is coming to the hospital with fever, chills, not feeling well, vomiting, nausea. The patient did throw up a couple of times, but when she came here, she started to have right upper quadrant pain. The patient was feeling really bad, had to come to the hospital. The patient is being admitted. The patient is currently lying in bed comfortably. PAST MEDICAL HISTORY: Significant for lupus, SLE, history of hypertension, history of anemia. PAST SURGICAL HISTORY: She denies. ALLERGIES: SHE SAID AMOXICILLIN CAN CAUSE SKIN RASH, BUT SHE IS TAKING CEFAZOLIN NOW AND SHE IS DOING GOOD WITH THAT. SOCIAL HISTORY: There is no smoking, drug abuse, or alcohol abuse. FAMILY HISTORY: Hypertension. REVIEW OF SYSTEMS: HEENT: Negative. PULMONARY: Negative. CARDIAC: Negative. : There is no urgency or frequency. SKIN: She had white patches noted. JOINTS: There is no erythema or edema. Review of systems otherwise was unremarkable. LABORATORY DATA: Reviewed. Her urine culture is gram-negative renae. White count is 20,000, hemoglobin 12.8. Her sodium 137, potassium 3.5, creatinine 0.71, albumin 2.4. PHYSICAL EXAMINATION: GENERAL: She is currently alert, oriented, does not seem to be in acute distress. VITAL SIGNS: Stable. Currently afebrile. HEENT: She does not appear icteric. NECK: Supple. CHEST: Clear. HEART: S1, S2. No S3, S4, or murmur. ABDOMEN: Soft. Bowel sounds present. EXTREMITIES: No edema. SKIN: No rash. She does have white spots noted on her skin. IMPRESSION: 1. Sepsis with urinary tract infection in a patient with lupus and systemic lupus erythematosus. Agree with Rocephin. Agree with IV fluid. Recheck CBC. Recheck chem panel. We will add Levaquin till we get the culture and sensitivity. 2. Hypertension. 3. History of lupus. We will follow with you. MD JANELLE Decker/LAKISHA /[id number]
[2018-11-03] MEDS: ENOXAPARIN SOD INJ 40 MG/0.4 ML SYR SC SCH (16:21)
--- NOTE | 2018-11-03 19:25 | NUR ---
PATIENT IS RESTING IN BED-IN STABLE CONDITION WITH NO S/S OF RESPIRATORY DISTRESS. PAIN MEDICATION GIVEN TO PATIENT RECENTLY. IV FLUIDS INFUSING. BED ALARM ON . CALL LIGHT IS WITHIN REACH, PATIENT INSTRUCTED TO CALL FOR ASSISTANCE NEEDED. BEDSIDE REPORT GIVEN TO ONCOMING NURSE.
--- NOTE | 2018-11-03 19:39 | NUR ---
PT IS RESTING IN BED. NO RESPIRATORY DISTRESS NOTED. BED IN THE LOWEST POSITION, LOCKED, BED ALARM ON, AND CALL LIGHT WITHIN REACH. WILL CONTINUE TO MONITOR.
[2018-11-03] MEDS: CEFTRIAXONE SOD 1 GM/NS 50 ML 50 ML IV SCH (21:31)
[2018-11-03] MEDS: TRAZODONE HCL 50 MG TAB PO PRN (21:31)
[2018-11-04] VITALS (8 sets, daily range): BP systolic 115–147; BP diastolic 55–85
[2018-11-04] MEDS: HYDROMORPHONE 2MG/ML 2 MG/ML ML IV PRN ×5 (01:02→20:18)
[2018-11-04] MEDS: SODIUM CHLORIDE 0.9% 1000ML 1,000 ML IV SCH ×2 (02:45→16:59)
[2018-11-04] MEDS: ACETAMINOPHEN 325 MG TAB PO PRN (02:46)
[2018-11-04 06:50] LABS: BASOPHILS % 0.2 % (0.0-1.0); EOSINOPHILS % 0.1 % (0.0-6.0); HEMATOCRIT 31.9 % (34.2-44.1); HEMOGLOBIN 10.9 g/dL (12.0-16.0); LYMPHOCYTES # (AUTO) 1.3 (1.0-3.2); MEAN CORPUSCULAR HEMOGLOBIN 32.4 pg (28-32); MEAN CORPUSCULAR HGB CONC 34.2 g/dL (31-35); MEAN CORPUSCULAR VOLUME 94.9 fL (81-99); MONOCYTES # (AUTO) 0.9 (0.2-0.8); MONOCYTES % 6.2 % (4.4-11.3); NEUTROPHILS # (AUTO) 11.9 (2.1-6.9); NEUTROPHILS % 83.7 % (38.7-80.0); PLATELET COUNT 220 x10e3/uL (140-360); RED BLOOD COUNT 3.36 x10e6/uL (3.6-5.1); RED CELL DISTRIBUTION WIDTH 12.1 % (11.7-14.4)
[2018-11-04 07:08] LABS: ANION GAP 12.1 mmol/L (8-16); BLOOD UREA NITROGEN 7 mg/dL (7-26); BUN/CREATININE RATIO 11 (6-25); CALCIUM 8.7 mg/dL (8.4-10.2); CARBON DIOXIDE 26 mmol/L (22-29); CHLORIDE 103 mmol/L (98-107); CREATININE, SERUM 0.64 mg/dL (0.57-1.11); EST GLOMERULAR FILTRATION RATE > 60 ML/MIN (60-); GLUCOSE 96 mg/dL (74-118); POTASSIUM 3.1 mmol/L (3.5-5.1); SODIUM 138 mmol/L (136-145)
--- NOTE | 2018-11-04 07:10 | NUR ---
PATIENT IS IN STABLE CONDITION WITH NO S/S OF RESPIRATORY DISTRESS. NO PAIN VOICED AND IV FLUIDS ARE INFUSING. BED ALARM ON . CALL LIGHT IS WITHIN REACH, PATIENT INSTRUCTED TO CALL FOR ASSISTANCE NEEDED.
[2018-11-04] MEDS: LEVOFLOXACIN 500MG/D5W 100ML 100 ML IV SCH (11:44)
[2018-11-04] MEDS ORDERED: POTASSIUM CHLORIDE 20 MEQ TAB CR PO ONE ×2 (12:15→12:45)
[2018-11-04] MEDS: PROMETHAZINE HCL 25 MG TAB PO PRN (13:42)
[2018-11-04] MEDS: ENOXAPARIN SOD INJ 40 MG/0.4 ML SYR SC SCH (16:59)
--- NOTE | 2018-11-04 19:14 | NUR ---
PATIENT IS IN STABLE CONDITION WITH NO S/S OF RESPIRATORY DISTRESS. PATIENT REQUESTING PAIN MEDICATION WHEN DILAUDID TIME FRAME BECOMES AVAILABLE. IV FLUIDS INFUSING. BED ALARM ON. FAMILY MEMBERS PRESENT IN ROOM. CALL LIGHT IS WITHIN REACH, PATIENT INSTRUCTED TO CALL FOR ASSISTANCE NEEDED. BEDSIDE REPORT GIVEN TO ONCOMING NURSE.
--- NOTE | 2018-11-04 19:29 | NUR ---
PT IS RESTING IN BED. RESPIRATION IS EVEN AND UNLABORED, NO DISTRESS NOTED. BED IN THE LOWEST POSITION, LOCKED, BED ALARM ON, AND CALL LIGHT WITHIN REACH. WILL CONTINUE TO MONITOR.
[2018-11-04] MEDS: CEFTRIAXONE SOD 1 GM/NS 50 ML 50 ML IV SCH (20:18)
--- NOTE | 2018-11-04 20:24 | Progress Note ---
DATE: 11/04/2018 Tele-Medicine Progress Note SUBJECTIVE: The patient still complaining of right-sided flank pain, but it is improving daily. Her white count improved. She has been afebrile. No overnight events. PHYSICAL EXAMINATION: VITAL SIGNS: Temperature 97.1, pulse 89, respirations 18, blood pressure 132/85, and pulse ox 99% on room air. GENERAL: In no acute distress. Alert and oriented x3. Cooperative on examination. HEENT: Head is normocephalic and atraumatic. Eyes, pupils are equal, round, and reactive to light bilaterally. Extraocular movements are intact. Throat, no evidence of erythema or exudates in the posterior pharynx. Has poor dentition. NECK: Supple. Good range of motion. PULMONARY: Clear to auscultation bilaterally. No wheezing, no rales, no rhonchi, no crackles appreciated. CARDIOVASCULAR: Positive S1, S2. No murmurs, rubs, or gallops appreciated. ABDOMEN: Soft, nondistended, and nontender to palpation. Bowel sounds present. MUSCULOSKELETAL: Strength is 5/5 throughout. No evidence of any muscle deficits on examination. No weakness appreciated. NEUROLOGIC: Cranial nerves II through XII grossly intact. No evidence of any neurological deficits on exam. SKIN: Intact. Warm to touch. Good cap refill. PSYCHIATRIC: Normal affect and mood. EXTREMITIES: No edema. Good range of motion throughout. LAB FINDINGS: Show white count 14.2, hemoglobin is 10.9, hematocrit is 32, and platelets of 220. Chemistry, reviewed and stable. Potassium is 3.1, we will give replacement. Urinalysis concerning for UTI. Urine drug screen positive for cannabinoids and opioids. Microbiology, urine culture consistent with E. coli pansensitive. Blood cultures, no growth. IMPRESSION: 1. Sepsis with leukocytosis secondary to right-sided pyelonephritis. 2. Urinary tract infection with pyelonephritis. 3. History of systemic lupus. 4. Positive drug screen for cannabinoids and opioids. PLAN: White count is improving tremendously. Her urine culture is consisting with pansensitivities, which is okay with IV Rocephin. ID is following very closely. Increase pain control to 1 mg q.4 hours p.r.n. pain. Otherwise, we will continue same plan of care. Encourage ambulation. Lovenox for DVT prophylaxis. Regular diet. Once she is improved, we will consider discharge home, hopefully in the next 1-2 days. MD ROBERT Eddy/LAKISHA /[id number]
[2018-11-04] MEDS: TRAZODONE HCL 50 MG TAB PO PRN (22:59)
[2018-11-05] VITALS (7 sets, daily range): BP systolic 118–164; BP diastolic 60–78
[2018-11-05] MEDS: ACETAMINOPHEN 325 MG TAB PO PRN (00:58)
[2018-11-05] MEDS: HYDROMORPHONE 2MG/ML 2 MG/ML ML IV PRN ×4 (02:05→21:16)
[2018-11-05] MEDS: SODIUM CHLORIDE 0.9% 1000ML 1,000 ML IV SCH ×2 (04:19→18:23)
[2018-11-05 06:37] LABS: BASOPHILS % 0.4 % (0.0-1.0); EOSINOPHILS # (AUTO) 0.1 (0.0-0.4); EOSINOPHILS % 0.9 % (0.0-6.0); HEMATOCRIT 32.3 % (34.2-44.1); HEMOGLOBIN 10.7 g/dL (12.0-16.0); LYMPHOCYTES # (AUTO) 1.6 (1.0-3.2); LYMPHOCYTES % 16.8 % (18.0-39.1); MEAN CORPUSCULAR HEMOGLOBIN 31.8 pg (28-32); MEAN CORPUSCULAR HGB CONC 33.1 g/dL (31-35); MEAN CORPUSCULAR VOLUME 96.1 fL (81-99); MONOCYTES # (AUTO) 0.9 (0.2-0.8); MONOCYTES % 9.6 % (4.4-11.3); NEUTROPHILS # (AUTO) 6.8 (2.1-6.9); NEUTROPHILS % 70.5 % (38.7-80.0); PLATELET COUNT 243 x10e3/uL (140-360); RED BLOOD COUNT 3.36 x10e6/uL (3.6-5.1); RED CELL DISTRIBUTION WIDTH 12.4 % (11.7-14.4)
[2018-11-05 07:12] LABS: ANION GAP 10.1 mmol/L (8-16); BLOOD UREA NITROGEN 9 mg/dL (7-26); BUN/CREATININE RATIO 14 (6-25); CALCIUM 8.4 mg/dL (8.4-10.2); CARBON DIOXIDE 26 mmol/L (22-29); CHLORIDE 104 mmol/L (98-107); CREATININE, SERUM 0.66 mg/dL (0.57-1.11); EST GLOMERULAR FILTRATION RATE > 60 ML/MIN (60-); GLUCOSE 101 mg/dL (74-118); POTASSIUM 3.1 mmol/L (3.5-5.1); SODIUM 137 mmol/L (136-145)
[2018-11-05] MEDS: PROMETHAZINE HCL 25 MG TAB PO PRN ×2 (08:35→18:23)
[2018-11-05] MEDS ORDERED: POTASSIUM CHLORIDE 20 MEQ TAB CR PO STA (12:14)
[2018-11-05] MEDS ORDERED: POTASSIUM CHLORIDE 20 MEQ TAB CR PO ONE (12:30)
[2018-11-05] MEDS: LEVOFLOXACIN 500MG/D5W 100ML 100 ML IV SCH (12:35)
--- NOTE | 2018-11-05 15:44 | Progress Note ---
DATE: 11/05/2018 Medicine Progress Note SUBJECTIVE: The patient complains of right-sided flank pain still. Pain medication is helping with her control. PHYSICAL EXAMINATION: VITAL SIGNS: Temperature is 98.5, pulse 71, respiratory rate is 18, blood pressure 132/76, pulse ox 98% on room air. GENERAL: Not in acute distress, alert and oriented x3. Cooperative on exam. HEENT: Head normocephalic, atraumatic. Eyes; pupils are equal, round, and reactive to light bilaterally. Extraocular movements are intact bilaterally. Throat, no evidence of any erythema or exudates in the posterior pharynx. Has poor dentition. NECK: Supple. Good range of motion. PULMONARY: Clear to auscultation bilaterally. No wheezing, no rales, no rhonchi, no crackles appreciated. CARDIOVASCULAR: Positive S1, S2. No murmurs, rubs, or gallops appreciated. ABDOMEN: Soft, nondistended, and nontender to palpation. Bowel sounds present. MUSCULOSKELETAL: Strength is 5/5 throughout. No evidence of any muscle deficits on examination. No weakness appreciated. NEUROLOGICAL: Cranial nerves II through XII grossly intact. No evidence of any neurological deficits on exam. SKIN: Intact. Warm to touch. Good cap refill. PSYCHIATRIC: Normal affect and mood. EXTREMITIES: No edema. Good range of motion throughout. LABORATORY DATA: Show white count 9.6, hemoglobin 10.7, hematocrit 32, and platelets 243. Chemistry reviewed and stable. Low potassium at 3.1. Microbiology noted. IMPRESSION: 1. Sepsis with leukocytosis secondary to right-sided pyelonephritis. 2. Urinary tract infection with pyelonephritis. 3. History of systemic lupus. 4. Positive cannabinoids and opiates on urine tox screen. PLAN: At this time, white count is normal. She is afebrile, doing well. She is on IV antibiotics. Microbiology noted. There is a prescription for Cipro in the chart for 2 weeks. The patient states that she is not ready for discharge today. We will monitor overnight and discharge tomorrow. Potassium is low. We will replace. MD ROBERT Eddy/LAKISHA /[id number]
--- NOTE | 2018-11-05 17:00 | NUR ---
Pt in bed aox4 and able to verbalize needs. Pt able to ambulate. 0 s/s of acute distress noted.
[2018-11-05] MEDS: ENOXAPARIN SOD INJ 40 MG/0.4 ML SYR SC SCH (17:20)
--- NOTE | 2018-11-05 18:57 | NUR ---
RECEIVED REPORT FROM PREVIOUS NURSE. CALL LIGHT WITHIN REACH. PATIENT IN BED. MOTHER AT THE BEDSIDE
[2018-11-06] VITALS: BP 135/79
[2018-11-06] MEDS: TRAZODONE HCL 50 MG TAB PO PRN (02:04)
[2018-11-06 04:00] VITALS: BP 150/72
[2018-11-06] MEDS: HYDROMORPHONE 2MG/ML 2 MG/ML ML IV PRN (06:23)
--- NOTE | 2018-11-06 06:57 | NUR ---
Gave report to oncoming nurse. Patient in bed. Call light within reach. Boyfriend at bedside
[2018-11-06 07:47] VITALS: BP 137/82
[2018-11-06 08:00] VITALS: BP 137/82
[2018-11-06] MEDS: PROMETHAZINE HCL 25 MG TAB PO PRN (08:36)
[2018-11-06] MEDS ORDERED: ONDANSETRON HCL INJ 2MG/ML 2ML 2 MG/ML VIAL IV ONE (11:15)
[2018-11-06 11:36] VITALS: BP 133/82
[2018-11-06] MEDS ORDERED: CIPRO500 MG PO (11:38)
[2018-11-06] MEDS ORDERED: ZOFRAN4 MG PO (11:39)
[2018-11-06] MEDS ORDERED: TYLENOL WITH C1 EACH PO (11:39)
--- NOTE | 2018-11-06 12:23 | NUR ---
Pt discharged home at this time. Pt verbalized understanding of all discharge instructions and follow up appts. Denies any pain at this time.
--- NOTE | 2018-11-07 00:20 | Discharge Summary ---
FINAL DISCHARGE DIAGNOSES: 1. Sepsis with leukocytosis secondary to right-sided pyelonephritis. 2. Urinary tract infection with pyelonephritis. 3. History of systemic lupus. 4. Positive urine drug screen for cannabinoids and opioids. CONSULTANTS: We had Infectious Disease. VITAL SIGNS: Temperature 98.9, pulse 87, respiratory rate is 18, blood pressure 133/82, pulse ox 98% on room air. LAB FINDINGS: Show white count is 9.6, hemoglobin 10.7, hematocrit 32, and platelets of 243. Coagulations were reviewed and normal. Chemistry; sodium 137, potassium 3.1, but replaced, chloride 104, bicarb 26, anion gap of 10, BUN 9, creatinine 0.66, calcium 8.4, glucose 101. LFTs were normal. Lipase was 10, amylase 61. Urinalysis concerning for UTI. Urine drug screen positive for opioids and cannabinoids. MICROBIOLOGY: Blood cultures were negative. Urine cultures were E coli pansensitive, will be discharged on oral Cipro. IMAGING STUDIES: CT of abdomen and pelvis with IV contrast shows enhancement of the kidneys suggestive of pyelonephritis. There is also hyperemia in the proximal left ureter suggestive of UTI. There are some also periaortic lymph nodes, likely to be reactive from underlying pyelonephritis. No evidence of bowel obstruction or inflammation. Normal appendix. Cholecystectomy and hysterectomy. HOSPITAL COURSE: This is a 47-year-old female, who came into the ED with complaints of flank pain and dysuria and underlying fever. The patient was admitted and was treated for underlying sepsis, UTI. The patient was found to have leukocytosis and a fever on admission. Imaging studies were consistent with pyelonephritis. ID was consulted. The patient was on broad-spectrum IV antibiotics. Blood cultures were negative. Urine culture was positive for E coli and pansensitive. The patient will be discharged on oral Cipro for 2 total weeks as per ID recommendations. While here in the hospital stay, the patient improved throughout the hospital course with no issues. She was back to normal baseline prior to being discharged home. She was tolerating diet well. On the day of discharge, vital signs stable, labs being stable. The patient was seen, evaluated, and examined thoroughly on the day of discharge with no other complaints. The patient verbalized understanding and agrees with plan of care to follow up as an outpatient with the PCP and ID in about 1-2 weeks' time. MEDICATIONS: See med reconciliation form including the Cipro 500 mg one tab p.o. b.i.d. x14 days, Zofran one tab q.6 hours p.r.n. for nausea, Tylenol No.3 one tab every 6 hours as needed for pain, 12 tablets given. CONDITION: Stable. DISPOSITION: Home. DIET: Heart-healthy. In the event of any worsening symptoms, the patient was advised to come back to the ED for further evaluation. Discharge summary took greater than 35 minutes. MD ROBERT Eddy/LAKISHA /[id number]
== END 2018-11-06 12:14 | disposition home or self-care (01) | DRG 872 ==
LOC: ER 16:25 → ERHOLD 20:48 → MED/SURG3 21:12
PROVIDERS: ADMIT Internal Medicine; ATTEND Internal Medicine
DX: A41.9 Sepsis, unspecified organism (principal); N10 Acute pyelonephritis; Z88.1 Allergy status to other antibiotic agents; Z88.5 Allergy status to narcotic agent; M32.9 Systemic lupus erythematosus, unspecified; F12.10 Cannabis abuse, uncomplicated; F11.10 Opioid abuse, uncomplicated; Z83.3 Family history of diabetes mellitus; Z82.49 Family history of ischemic heart disease and other diseases of the circulatory system; I10 Essential (primary) hypertension; B96.20 Unspecified Escherichia coli [E. coli] as the cause of diseases classified elsewhere
CPT/HCPCS: 36415; 74177; 80048; 80053; 80307; 81001; 82150; 83690; 85025; 85610; 85730; 87040; 87086; 87186; 99284; J0696; J1650; J1956; J2270; J2405; J7030; Q9967

== ENCOUNTER 2020-02-01 19:50 | Emergency (ER) | payer MEDICARE ==
[~2020-02-01] VITALS: Ht 149.9 cm; Wt 52.6 kg
[~2020-02-01 19:50] MED LIST: CIPRO500 MG PO; TYLENOL WITH C1 EACH PO; ZOFRAN4 MG PO
--- NOTE | 2020-02-01 20:35 | Emergency Department Note ---
History of Present Illnes History of Present Illness Chief Complaint: General Medicine Complaints History of Present Illness This is a 49 year old female PRESENTS TO THE ER C/O PSORIASIS FLARE UP ONSET X2 WEEKS AGO [employer]; PPT STATES HER PSORIASIS IS "INVERTED" AND REPORTS PAIN IN VAGINAL CANAL; REPORTS DARK PURPLE COLOR; PT STATES SHE SAW HER C[employer] X2 WEEKS AGO AND DID NOT DO ANYTHING ABOUT IT; PT ALSO REPORTS SWELLING AND PAIN TO RT LOWER BACK AND RLQ; NAD NOTED AT THIS TIME; RESP EVEN/UNLABORED; . Historian: Patient Arrival Mode: Car Onset (how long ago): week(s) (2) Location: ALL OVER Quality: PAIN Radiation: Reports non-radiation Severity: moderate Onset quality: gradual Duration (how long): week(s) (2) Timing of current episode: constant Progression: unchanged Chronicity: chronic Context: Denies recent illness, Denies recent surgery, Denies trauma/injury Relieving factors: none Exacerbating factors: none Associated symptoms: Reports denies other symptoms Treatments prior to arrival: none Past Medical/Family History Physician Review I have reviewed the patient's past medical and family history. Any updates have been documented here. Past Medical History Recent Fever: No Clinical Suspicion of Infectio: No New/Unexplained Change in Ment: No Past Medical History: Lupus Other Medical History: FIBROMYALGIA PSORIATTIC ARTHRITIS RHEUMATOID ARTHRITIS AUTOIMMUNE HEPATITIS (2002) Past Surgical History: Cholecysctectomy, Hysterectomy, , Hernia Repair Other Surgery: BREAST AUGEMENTATION, TUMMY TUCK Social History Smoking Cessation: Never Smoker Alcohol Use: None Any Illegal Drug Use: No Physically hurt or threatened: No Family History Family history of heart diseas: No Other Last Tetanus: UTD Review of Systems Review of Systems Constitutional: Reports no symptoms EENTM: Reports no symptoms Cardiovascular: Reports no symptoms Respiratory: Reports no symptoms Gastrointestinal: Reports no symptoms Genitourinary: Reports no symptoms Musculoskeletal: Reports as per HPI Integumentary: Reports no symptoms Neurological: Reports no symptoms Psychological: Reports no symptoms Endocrine: Reports no symptoms Hematological/Lymphatic: Reports no symptoms Physical Exam Related Data Allergies: Coded Allergies: amoxicillin (Verified Allergy, Unknown, 04/04/18) ketorolac (Verified Allergy, Unknown, 02/01/20) morphine (Verified Adverse Reaction, Unknown, 04/05/18) Triage Vital Signs Vital Signs Date Time Temp Pulse Resp B/P (MAP) Pulse Ox O2 Delivery O2 Flow Rate FiO2 02/01/20 20:16 98.6 105 20 179/85 100 Room Air Vital signs reviewed: Yes Physical Exam CONSTITUTIONAL Constitutional: Present well-developed, Present well-nourished HENT HENT: Present normocephalic, Present atraumatic, Present oropharynx clear/moist, Present nose normal HENT L/R: Present left ext ear normal, Present right ext ear normal EYES Eyes: Reports PERRL, Reports conjunctivae normal NECK Neck: Present ROM normal PULMONARY Pulmonary: Present effort normal, Present breath sounds normal CARDIOVASCULAR Cardiovascular: Present regular rhythm, Present heart sounds normal, Present capillary refill normal, Present normal rate GASTROINTESTINAL Abdominal: Present soft, Present nontender, Present bowel sounds normal GENITOURINARY Genitourinary: Present exam deferred SKIN Skin: Present warm, Present dry, Present rash (PSORIATIC TO SCALP, ARMS) MUSCULOSKELETAL Musculoskeletal: Present ROM normal NEUROLOGICAL Neurological: Present alert, Present oriented x 3, Present no gross motor or sensory deficits PSYCHOLOGICAL Psychological: Present mood/affect normal, Present judgement normal Assessment & Plan Medical Decision Making MDM PT WITH CHRONIC PAIN FROM LUPUS AND PSORIASIS TRAMADOL 50 MG ONE PO Q 6 HOURS PRN PAIN INSTRUCTED TO FOLLOW UP WITH C[employer] Assessment & Plan Final Impression: (1) Lupus (2) Psoriasis (3) Chronic pain Depart Disposition: HOME, SELF-CARE Last Vital Signs Date Time Temp Pulse Resp B/P (MAP) Pulse Ox O2 Delivery O2 Flow Rate FiO2 02/01/20 20:16 98.6 105 20 179/85 100 Room Air Home Meds Reported Medications Ondansetron Hcl* (ZOFRAN*) 4 Mg Tablet, 4 MG PO Q6H for nausea 11/06/18 Acetaminophen With Codeine (TYLENOL WITH CODEINE #3 TABLET) 1 Each Tablet, 300 MG PO Q6HR for pain, TAB 11/06/18 Ciprofloxacin Hcl (CIPRO) 500 Mg Tablet, 500 MG PO Q12H, #30 TAB 11/06/18 JESSICA HACKETT MD Feb 01, 2020 20:35
--- OUTSIDE RECORDS SUMMARY | 2020-02-01 20:56 | XMS REPORT | Continuity of Care Document ---
Author Author [facility] [employer] Address Unknown Phone Unavailable Care Team Providers Care [facility] Man Name Role Phone [employer] Unavailable Un available Problems Problem Status Onset Date Classification Date Reported Comments Source Autoimmune hepatitis Active Problem 09/08/2017 Saurabh Mandeler Lupus Active Problem 09/08/2017 Saurabh Mandeler Polyarthritis Active Problem 09/08/2017 Saurabh Garcia Psoriasis Active Problem 09/08/2017 Saurabh Garcia Medications Medication Details Route Status Patient Instructions Ordering Provider Order Date Source Ciprofloxacin HCl 1 tablet Orally Active 500 MG Orally Twice a day Gonzalez 12/10/2016 Saurbah Garcia Medrol Dose Eze as directed Orally Active 4mg Orally once a day Gonzalez 12/04/2016 Saurabh Garcia [place] 1 tablet as needed Orally Active 10-325 MG Orally every 6 hrs Gonzalez Saurabh Garcia [place] 1 tablet Orally Active 30 MG Orally Twice a da y Gonzalez Phi lleugenio Garcia Allergies, Adverse Reactions, Alerts Substance Category Reaction Severity Reaction type Status Date Reported Comments Source Sudafed Adverse Reaction jitters Adverse Reaction Active 2016 Saurabh Garcia Amoxicillin Adverse Reaction hives/vomiting Adverse Reactio n Active 2016 Saurabh Garcia Immunizations No Data Provided for This Section Results No Data Provided for This Section Pathology Reports No Data Provided for This Section Diagnostic Reports No Data Provided for This Section Consultation Notes No Data Provided for This Section Discharge Summaries No Data Provided for This Section History and Physicals No Data Provided for This Section Vital Signs Vital Sign Value Date Comments Source Heart Rate 86 2016 Saurabh Garcia Diastolic (mm Hg) 70 2016 Saurabh Garcia Systolic (mm Hg) 124 2016 Saurabh Garcia Temperature Oral (F) 97.8 F 2016 Saurabh Garcia Encounters No Data Provided for This Section Procedures No Data Provided for This Section Assessment and Plan No Data Provided for This Section Plan of Care No Data Provided for This Section Social History No Data Provided for This Section Family History No Data Provided for This Section Advance Directives No Data Provided for This Section Functional Status No Data Provided for This Section
--- OUTSIDE RECORDS SUMMARY | 2020-02-01 20:56 | XMS REPORT | Continuity of Care Document ---
Author Author [facility] t Organization [facility] Address [address] [place] [address] Phone Unavailable Care Team Providers Care Fire Tower Keeper Name Role Phone NONSTAFF PCP Unavailable Essie KATZ Attphys Unavailable HAMIDA DE LA TORRE Attphys Unavailable HAMIDA DE LA TORRE Admphypretty Unavailable Payers Payer Name Policy Type Policy Number Effective Date Expiration Date S ource Medicare A & B [id number] 2005 00:00:00 [facility] Problems Condition Name Condition Details Condition Category Status Onset Date Resolution Date Last Treatment Date Treating Clinician Comments Source Dehydration Dehydration Problem Active [facility] Intractable vomiting Intractable vomiting Problem Active [facility] Pyelonephritis Pyelonephritis Problem Active [facility] Autoimmune hepatitis Auto immune hepatitis Active Problem 09/08/2017 Saurabh Garcia Problem Active 2017-09-08 02:46:36 [facility] Lupus Lupu s Active Problem 09/08/2017 Saurabh Garcia Problem Active 2017-09-08 02:46:36 [facility] Polyarthritis Poly arthritis Active Problem 09/08/2017 Saurabh Garcia Problem Active 2017-09-08 02:46:36 [facility] Psoriasis Psor iasis Active Problem 09/08/2017 Saurabh Garcia Problem Active 2017-09-08 02:46:36 [facility] Allergies, Adverse Reactions, Alerts Allergy Name Allergy Type Status Severity Reaction(s) Onset Date Inacti ve Date Treating Clinician Comments Source ketorolac DA Active [place] 2020-01-11 00:00:00 [facility] Morphine Propensity to adverse reactions Active 2018-04-05 00:00:00 [facility] Amoxicillin Allergy to Substance Active 2018-04-04 00:00:00 [facility] Sudafed Sudafed Active jitters 2016 00:00:00 [facility] Amoxicillin Amoxicillin Active hives/vomiting 2016 00:00:00 [facility] pseudoephedrine HCl DA Active [place] 2016-08-01 00:00:00 [facility] codeine DA Active SV 2016-08-01 00:00:00 [facility] oxycodone DA Active SV 2016-08-01 00:00:00 [facility] amoxicillin DA Active [place] 2016-08-01 00:00:00 [facility] Medications Ordered Medication Name Filled Medication Name Start Date Stop Da te Current Medication? Ordering Clinician Indication Dosage Frequency Signature (SIG) Comments Components Source Bradley 2017-01-27 02:46:31 Yes Soniya Gonzalez 1 ta blet as needed [facility] Otezla 2017-01-27 02:46:31 Yes Soniya Gonzalez 1 t ablet [facility] Ciprofloxacin HCl 2016-12-10 00:00:00 Yes Soniya Gonzalez 1 tablet [facility] Medrol Dose Eze 2016-12-04 00:00:00 Yes Soniya Gonzalez as directed [facility] Acetaminophen With Codeine (Tylenol With Codeine #3 Ta blet) 1 Each Tablet Acetaminophen With Codeine (Tylenol With Codeine #3 Tablet) 1 Each Tablet Yes 300 Every 6 Hours for Pain C HI [facility] Ciprofloxacin Hcl (Cipro) 500 Mg Tablet Ciprofloxacin Hcl (C ipro) 500 Mg Tablet Yes 500 Every 12 Hours CH I [facility] Ondansetron Hcl (Zofran*) 4 Mg Tablet Ondansetron Hcl (Zofran*) 4 M g Tablet Yes 4 Every 6 Hours for Nausea [facility] Vital Signs Vital Name Observation Time Observation Value Comments Source Heart Rate 2016 14:45:00 Markos Jones Diastolic (mm Hg) 2016 14:45:00 Fifi orielizabeth Jones Systolic (mm Hg) 2016 14:45:00 Rangel rial Robert Temperature Oral (F) 2016 14:45:00 97.8 [facility] Procedures Procedure Date / Time Performed Performing Clinician [facility] e Computed tomography of abdomen and pelvis with contrast 2018 00:00:00 ДМИТРИЙSHARIF CANDACE [place] [facility] EGD BIOPSY SINGLE/MULTIPLE 2018-04-04 00:00:00 AUTUMN SIGALA [facility] Encounters Start Date/Time End Date/Time Encounter Type Admission Type Attendi [facility] Care Department Encounter ID Source 2018-11-02 20:48:00 2018-11-06 12:14:00 Discharged Inpatient 1 CANDACE KATZ [facility] [id number] [facility] 2018-10-20 21:30:00 2018-10-20 21:59:00 Departed Emergency Room [facility] [id number] [facility] 2018-04-04 20:12:00 2018-04-07 18:33:00 Discharged Inpatient (obs) 1 HAMIDA DE LA TORRE [facility] [id number] [facility] 2017-09-07 11:50:00 2017-09-07 11:50:00 Outpatient Sanjiv Garcia MD [place] [id number] Saurabh Garcia MD 2017-02-13 15:19:00 2017-02-13 15:19:00 Outpatient Sanjiv Garcia MD [place] [id number] Saurabh Garcia MD 2016 09:45:00 2016 09:45:00 Outpatient Sanjiv Garcia MD [place] [id number] Saurabh Garcia MD Results Test Description Test Time Test Comments Results Result Comments Source - CT ABD PELVIS W/CONT 2020-01-11 17:06:00 Joe e: JANETTE SONG [facility] : 1970 Age/S: 49 / F [id number] [address] Unit #: [id number] Loc: [place] [address] Phys: Dieudonne Liao DO Acct: [id number] Dis Date: Status: REG ER PHONE #: [phone] Exam Date: 01/11/2020 1650 FAX #: Reason: RLQ pain EXAMS: CPT: [id number] CT ABD PELVIS W/CONT 81604 EXAM: CT ABDOMEN AND PELVIS WITH IV CONTRAST DICTATION LOCATION: H48 HISTORY: Female, 49 years of age with RLQ pain TECHNIQUE: Contrast: Nonionic IV contrast was given. No GI contrast was given. Portal venous phase: Abdomen and pelvis Delayed phase: None Reconstructions: Coronal and sagittal One or more of the following dose reduction techniques were used: Automated exposure control; adjustment of the mA and/or kV according to the patient size; and/or use of iterative reconstruction technique. COMPARISON: Pelvic ultrasound performed 12/06/2010 FINDINGS: Statements: Exam quality is acceptable. Lower thorax: There are bilateral breast implants. No focal infiltrate or effusion. Hepatobiliary: The liver is normal without focal lesion. Status post cholecystectomy. No biliary dilation. Pancreas: Normal. Spleen: Normal. Adrenals: Normal. Genitourinary: No solid renal mass, significant cortical thinning, obvious renal stone or hydronephrosis. Ureters are unremarkable. Urinary bladder is unremarkable. Uterus and ovaries are not seen. Gastrointestinal: No bowel wall thickening, bowel obstruction or perienteric inflammation. The appendix is normal. Large amount of stool seen in colon. Vascular: No aortic aneurysm or dissection. IVC is unremarkable. Portal vein is patent. Lymphatics: No enlarged lymph nodes by CT size criteria. PAGE 1 Signed Report (CONTINUED) Name: JANETTE SONG [facility] : 1970 Age/S: 49 / F [id number] [facility] [address] Unit #: [id number] Loc: [place] [address] Phys: Dieudonne LiaoGuillermina DO Acct: [id number] Dis Date: Status: REG ER PHONE #: [phone] Exam Date: 01/11/2020 1650 FAX #: Reason: RLQ pain EXAMS: CPT: [id number] CT ABD PELVIS W/CONT 42595 <Continued> Bones/Soft Tissues: No acute osseous findings. No ventral hernias. Peritoneum/Other: No free intraperitoneal air. No free intraperitoneal fluid. IMPRESSION: 1. No acute findings in abdomen or pelvis. 2. Fecal retention. at 1706 Reported and signed by: Enid Trujillo MD CC: Talib Smith MD; Dieudonne Liao DO Technologist:Mauricio Leonard, RT(R)(CT)(MRI) CTDI: DLP: Trnscb Date/Time: 01/11/2020 (1706) [email or web address] Orig Print D/T: S: 01/11/2020 (8207) PAGE 2 Signed Report UA RFLX MICR CULT IF INDICATED 2020-01-11 16:15:00 Test Item UA COLOR (test code = COLU) YELLOW discript YEL/STRAW UA APPEARANCE (test code = APPU) CLEAR discript CLEAR UA GLUCOSE DIPSTICK (test code = DGLUU) NEGATIVE mg/dL NEG UA BILIRUBIN DIPSTICK (test code = BILU) NEGATIVE mg/dL NEG UA KETONE DIPSTICK (test code = KETU) TRACE mg/dL NEG UA SPECIFIC GRAVITY (test code = SGU) 1.025 SG 1.005-1.030 UA BLOOD DIPSTICK (test code = ARELY) NEGATIVE mg/DL NEG UA PH DIPSTICK (test code = KHADRA) 5.5 pH UNITS 5.0-7.0 UA PROTEIN DIPSTICK (test code = PROU) NEGATIVE mg/dL NEG UA UROBILINIOGEN DIPSTICK (test code = URO) 0.2 mg/dL <2.0 UA NITRITE DIPSTICK (test code = ISIS) NEGATIVE SCREEN NEG UA LEUKOCYTE ESTERASE DIPSTICK (test code = LEUU) NEGATIVE Leuk/mcL NEGATIVE SOURCE OF URINE: CLEAN CATCHIndication for culture: Flank PainUR HCG QUAL 2020-01-11 16:15:00* Test Item Value Reference Range Interpretation Comments UR HCG QUAL (test code = HCGQLU) NEGATIVE NEGATIVE SOURCE OF URINE: CLEAN CATCHIndication for culture: Flank PainDRUGS OF ABUSE SCREEN [id number] 16:15:00* Test Item Value Reference Range Interpretation Comments URN COCAINE (test code = COCAURN) NEGATIVE SCcutoff <300 NG/ML URN CANNABINOIDS (test code = CANNABURN) NEGATIVE SCcutoff <50 NG/M L URN AMPHETAMINE (test code = AMPHETURN) POSITIVE SCcutoff <1000 NG/ ML A URN BARBITURATE (test code = BARBITURN) NEGATIVE SCcutoff <200 NG/M L URN BENZODIAZEPINE (test code = BENZOURN) NEGATIVE SCcutoff <200 NG /ML URN OPIATES (test code = OPIATURN) NEGATIVE SCcutoff <2000 NG/ML URN PHENCYCLIDINE (PCP) (test code = PHENCURN) NEGATIVE SCcutoff <2 5 NG/ML URN METHADONE (test code = METHAURN) NEGATIVE SCcutoff <300 NG/ML SOURCE OF URINE: CLEAN CATCHIndication for culture: Flank PainRULE OUT [place] [id number] 15:56:00* Test Item Value Reference Range Interpretation Comments CREATINE KINASE (CK) (test code = CK) 140 Unit/L 26-192 N TROPONIN-I (test code = TROPI) < 0.015 NG/ML 0.000-0.045 N Negative: </= 0.045 Positive: >/= 0.046 Correlation with serial results, other cardiac markers, and clinical findings is necessary to determine the clinical significance of this result. Quantitative results using different methodologies should not be compared to one another as numerical results may varyby method. COMPREHENSIVE METABOLIC [id number] 15:46:00* Test Item Value Reference Range Interpretation Comments SODIUM (test code = NA) 137 mmol/L 134-147 N POTASSIUM (test code = K) 3.6 mmol/L 3.4-5.0 N CHLORIDE (test code = CL) 100 mmol/L 100-108 N CARBON DIOXIDE (test code = CO2) 33 mmol/L 21-32 H ANION GAP (test code = GAP) 4.0 GAP calc 4.0-15.0 N GLUCOSE (test code = GLU) 94 MG/DL 70-110 N BLOOD UREA NITROGEN (test code = BUN) 11 MG/DL 7-18 N GLOMERULAR FILTRATION RATE (test code = GFR) >=60 max estimate estG FR >60 CREATININE (test code = CREAT) 0.6 MG/DL 0.6-1.0 N TOTAL PROTEIN (test code = PROT) 7.2 G/DL 6.4-8.2 N ALBUMIN (test code = ALB) 3.8 G/DL 3.4-5.0 N GLOBULIN (test code = GLOB) 3.4 GM/dL ALBUMIN/GLOBULIN RATIO (test code = A/G) 1.1 RATIO 1.2-2.2 L CALCIUM (test code = CA) 8.5 MG/DL 8.5-10.1 N BILIRUBIN TOTAL (test code = BILT) 0.20 MG/DL 0.2-1.2 N SGOT/AST (test code = AST) 27 Unit/L 15-37 N SGPT/ALT (test code = ALT) 45 Unit/L 12-78 N ALKALINE PHOSPHATASE TOTAL (test code = ALKP) 121 Unit/L 45-117 H [id number] 15:46:00* Test Item Value Reference Range Interpretation Comments LIPASE (test code = LIP) 104 Unit/L 114-286 L UA RFLX MICR CULT IF [id number] 15:34:00* Test Item Value Reference Range Interpretation Comments UA COLOR (test code = COLU) YELLOW discript YEL/STRAW UA APPEARANCE (test code = APPU) CLEAR discript CLEAR UA GLUCOSE DIPSTICK (test code = DGLUU) NEGATIVE mg/dL NEG UA BILIRUBIN DIPSTICK (test code = BILU) NEGATIVE mg/dL NEG UA KETONE DIPSTICK (test code = KETU) TRACE mg/dL NEG UA SPECIFIC GRAVITY (test code = SGU) 1.025 SG 1.005-1.030 UA BLOOD DIPSTICK (test code = ARELY) NEGATIVE mg/DL NEG UA PH DIPSTICK (test code = KHADRA) 5.5 pH UNITS 5.0-7.0 UA PROTEIN DIPSTICK (test code = PROU) NEGATIVE mg/dL NEG UA UROBILINIOGEN DIPSTICK (test code = URO) 0.2 mg/dL <2.0 UA NITRITE DIPSTICK (test code = ISIS) NEGATIVE SCREEN NEG UA LEUKOCYTE ESTERASE DIPSTICK (test code = LEUU) NEGATIVE Leuk/mcL NEGATIVE SOURCE OF URINE: CLEAN CATCHIndication for culture: Flank PainUR HCG QUAL 2020-01-11 15:34:00* Test Item Value Reference Range Interpretation Comments UR HCG QUAL (test code = HCGQLU) NEGATIVE NEGATIVE SOURCE OF URINE: CLEAN CATCHIndication for culture: Flank PainDRUGS OF ABUSE SCREEN [id number] 15:34:00* Test Item Value Reference Range Interpretation Comments URN COCAINE (test code = COCAURN) SCcutoff <300 NG/ML URN CANNABINOIDS (test code = CANNABURN) SCcutoff <50 NG/ML URN AMPHETAMINE (test code = AMPHETURN) SCcutoff <1000 NG/ML URN BARBITURATE (test code = BARBITURN) SCcutoff <200 NG/ML URN BENZODIAZEPINE (test code = BENZOURN) SCcutoff <200 NG/ML URN OPIATES (test code = OPIATURN) SCcutoff <2000 NG/ML URN PHENCYCLIDINE (PCP) (test code = PHENCURN) SCcutoff <25 NG/ ML URN METHADONE (test code = METHAURN) SCcutoff <300 NG/ML SOURCE OF URINE: CLEAN CATCHIndication for culture: Flank PainUA RFLX MICR CULT IF [id number] 15:31:00* Test Item Value Reference Range Interpretation Comments UA COLOR (test code = COLU) YELLOW discript YEL/STRAW UA APPEARANCE (test code = APPU) CLEAR discript CLEAR UA GLUCOSE DIPSTICK (test code = DGLUU) NEGATIVE mg/dL NEG UA BILIRUBIN DIPSTICK (test code = BILU) NEGATIVE mg/dL NEG UA KETONE DIPSTICK (test code = KETU) TRACE mg/dL NEG UA SPECIFIC GRAVITY (test code = SGU) 1.025 SG 1.005-1.030 UA BLOOD DIPSTICK (test code = ARELY) NEGATIVE mg/DL NEG UA PH DIPSTICK (test code = KHADRA) 5.5 pH UNITS 5.0-7.0 UA PROTEIN DIPSTICK (test code = PROU) NEGATIVE mg/dL NEG UA UROBILINIOGEN DIPSTICK (test code = URO) 0.2 mg/dL <2.0 UA NITRITE DIPSTICK (test code = ISIS) NEGATIVE SCREEN NEG UA LEUKOCYTE ESTERASE DIPSTICK (test code = LEUU) NEGATIVE Leuk/mcL NEGATIVE UA CULTURE NEEDED? (test code = UACULT) Criteria Culture CHK SOURCE OF URINE: CLEAN CATCHIndication for culture: Flank PainUR HCG QUAL 2020-01-11 15:31:00* Test Item Value Reference Range Interpretation Comments UR HCG QUAL (test code = HCGQLU) NEGATIVE SOURCE OF URINE: CLEAN CATCHIndication for culture: Flank PainDRUGS OF ABUSE SCREEN [id number] 15:31:00* Test Item Value Reference Range Interpretation Comments URN COCAINE (test code = COCAURN) SCcutoff <300 NG/ML URN CANNABINOIDS (test code = CANNABURN) SCcutoff <50 NG/ML URN AMPHETAMINE (test code = AMPHETURN) SCcutoff <1000 NG/ML URN BARBITURATE (test code = BARBITURN) SCcutoff <200 NG/ML URN BENZODIAZEPINE (test code = BENZOURN) SCcutoff <200 NG/ML URN OPIATES (test code = OPIATURN) SCcutoff <2000 NG/ML URN PHENCYCLIDINE (PCP) (test code = PHENCURN) SCcutoff <25 NG/ ML URN METHADONE (test code = METHAURN) SCcutoff <300 NG/ML SOURCE OF URINE: CLEAN CATCHIndication for culture: Flank PainCBC W/AUTO [id number] 15:27:00* Test Item Value Reference Range Interpretation Comments WHITE BLOOD CELL (test code = WBC) 7.9 K/mm3 3.5-11.0 N RED BLOOD CELL (test code = RBC) 4.13 M/mm3 4.70-6.10 L HEMOGLOBIN (test code = HGB) 13.8 G/DL 10.4-14.9 N HEMATOCRIT (test code = HCT) 39.3 % 31.5-44.1 N MEAN CELL VOLUME (test code = MCV) 95.2 Fl 84.5-98.6 N MEAN CELL HGB (test code = MCH) 33.4 pg 27.0-34.2 N MEAN CELL HGB CONCETRATION (test code = MCHC) 35.1 G/DL 31.5-34. 0 H RED CELL DISTRIBUTION WIDTH (test code = RDW) 11.8 SD 11.5-14. 5 N PLATELET COUNT (test code = PLT) 332 K/mm3 150-450 N MEAN PLATELET VOLUME (test code = MPV) 10.20 fL 7.0-10.5 N NEUTROPHIL % (test code = NT%) 55.5 % 40-76 N IMMATURE GRANULOCYTE % (test code = IG%) 0.1 % 0.0-5.0 N LYMPHOCYTE % (test code = LY%) 32.8 % 20.5-51.1 N MONOCYTE % (test code = MO%) 7.3 % 1.7-9.3 N EOSINOPHIL % (test code = EO%) 3.3 % 0.0-6.0 N BASOPHIL % (test code = BA%) 1.0 % 0.0-2.0 N NUCLEATED RBC % (test code = NRBC%) 0.0 /100WBC% 0.0-1.0 N NEUTROPHIL # (test code = NT#) 4.4 K/mm3 1.8-7.6 N IMMATURE GRANULOCYTE # (test code = IG#) 0.01 x10 3/uL 0.00-0.03 N LYMPHOCYTE # (test code = LY#) 2.6 K/mm3 0.6-3.2 N MONOCYTE # (test code = MO#) 0.6 K/mm3 0.3-1.1 N EOSINOPHIL # (test code = EO#) 0.3 K/mm3 0.0-0.4 N BASOPHIL # (test code = BA#) 0.1 K/mm3 0.0-0.1 N NUCLEATED RBC # (test code = NRBC#) 0.0 K/mm3 0.0-0.1 N MANUAL DIFF REQUIRED (test code = MDIFF) NO DIFF/SCN CRITERIA Blood [id number] 15:13:00* Test Item Value Reference Range Interpretation Comments Blood Culture (test code = 99951320) NO GROWTH AFTER [facility]RS [facility] [id number] 07:26:00* Test Item Value Reference Range Interpretation Comments Sodium Level (test code = 2951-2) 137 136-145 [facility]assium [id number] 07:26:00* Test Item Value Reference Range Interpretation Comments Potassium Level (test code = 2823-3) 3.1 3.5-5.1 L [facility]iscoChloride [id number] 07:26:00* Test Item Value Reference Range Interpretation Comments Chloride Level (test code = 2075-0) 104 98-107 [facility]iscoCarbon Dioxide [id number] 07:26:00* Test Item Value Reference Range Interpretation Comments Carbon Dioxide Level (test code = 2028-9) 26 22-29 [facility] FriscoAnion [id number] 07:26:00* Test Item Value Reference Range Interpretation Comments Anion Gap (test code = 13738-4) 10.1 8-16 [facility]iscoBlood Urea [id number] 07:26:00* Test Item Value Reference Range Interpretation Comments Blood Urea Nitrogen (test code = 3094-0) 9 7-26 [facility]iscoCreatinine2019-06-21 07:26:00* Test Item Value Reference Range Interpretation Comments Creatinine (test code = 2160-0) 0.66 0.57-1.11 [facility]iscoBUN/Creatinine [id number] 07:26:00* Test Item Value Reference Range Interpretation Comments BUN/Creatinine Ratio (test code = 3097-3) 14 11-09 [facility] FriscoEstimat Glomerular Filtration Rate 2018-11-05 07:26:00* Test Item Value Reference Range Interpretation Comments Estimat Glomerular Filtration Rate (test code = 688566633) > 60 >60 Ranges were taken from the National Kidney Disease Education Program and the [facility] Kidney Foundation literature.Reference ranges:60 or greater: Oblwjo61-15 ( for 3 consecutive months): Chronic kidney disease 15 or less: Kidney failureBaylor Scott and White Medical Center – FriscoGlucose [id number] 07:26:00* Test Item Value Reference Range Interpretation Comments Glucose Level (test code = FIG2039) 101 74-118 [facility]iscoCalcium [id number] 07:26:00* Test Item Value Reference Range Interpretation Comments Calcium Level (test code = 47421-6) 8.4 8.4-10.2 [facility] FriscoWhite Blood [id number] 06:37:00* Test Item Value Reference Range Interpretation Comments White Blood Count (test code = 6690-2) 9.66 4.8-10.8 [facility] FriscoRed Blood [id number] 06:37:00* Test Item Value Reference Range Interpretation Comments Red Blood Count (test code = 789-8) 3.36 3.6-5.1 L [facility]iscoHemoglobin2019-06-21 06:37:00* Test Item Value Reference Range Interpretation Comments Hemoglobin (test code = 49268-0) 10.7 12.0-16.0 L [facility]iscoHematocrit2019-06-21 06:37:00* Test Item Value Reference Range Interpretation Comments Hematocrit (test code = 4544-3) 32.3 34.2-44.1 L [facility] FriscoMean Corpuscular [id number] 06:37:00* Test Item Value Reference Range Interpretation Comments Mean Corpuscular Volume (test code = 787-2) 96.1 81-99 [facility] FriscoMean Corpuscular [id number] 06:37:00* Test Item Value Reference Range Interpretation Comments Mean Corpuscular Hemoglobin (test code = 785-6) 31.8 28-32 [facility] FriscoMean Corpuscular Hemoglobin Concent 2018-11-05 06:37:00* Test Item Value Reference Range Interpretation Comments Mean Corpuscular Hemoglobin Concent (test code = 786-4) 33.1 31-35 [facility] FriscoRed Cell Distribution [id number] 06:37:00* Test Item Value Reference Range Interpretation Comments Red Cell Distribution Width (test code = 46598-9) 12.4 11.7 -14.4 [facility] FriscoPlatelet [id number] 06:37:00* Test Item Value Reference Range Interpretation Comments Platelet Count (test code = 777-3) 243 140-360 [facility] FriscoNeutrophils (%) (Auto)2018-11-05 06:37:00 * Test Item Value Reference Range Interpretation Comments Neutrophils (%) (Auto) (test code = 76343-7) 70.5 38.7-80.0 [facility] FriscoLymphocytes (%) (Auto)2018-11-05 06:37:00 * Test Item Value Reference Range Interpretation Comments Lymphocytes (%) (Auto) (test code = 736-9) 16.8 18.0-39.1 L [facility] FriscoMonocytes (%) (Auto)2018-11-05 06:37:00* Test Item Value Reference Range Interpretation Comments Monocytes (%) (Auto) (test code = 5905-5) 9.6 4.4-11.3 [facility]iscoEosinophils (%) (Auto)2018-11-05 06:37:00 * Test Item Value Reference Range Interpretation Comments Eosinophils (%) (Auto) (test code = 713-8) 0.9 0.0-6.0 [facility]iscoBasophils (%) (Auto)2018-11-05 06:37:00* Test Item Value Reference Range Interpretation Comments Basophils (%) (Auto) (test code = 706-2) 0.4 0.0-1.0 [facility] FriscoIM GRANULOCYTES %2018-11-05 06:37:00* Test Item Value Reference Range Interpretation Comments IM GRANULOCYTES % (test code = IM GRANULOCYTES %) 1.8 0.0- 1.0 H [facility] FriscoNeutrophils # (Auto)2018-11-05 06:37:00* Test Item Value Reference Range Interpretation Comments Neutrophils # (Auto) (test code = 751-8) 6.8 2.1-6.9 [facility] FriscoLymphocytes # (Auto)2018-11-05 06:37:00* Test Item Value Reference Range Interpretation Comments Lymphocytes # (Auto) (test code = 50118-2) 1.6 1.0-3.2 [facility]iscoMonocytes # (Auto)2018-11-05 06:37:00* Test Item Value Reference Range Interpretation Comments Monocytes # (Auto) (test code = 742-7) 0.9 0.2-0.8 H [facility]iscoEosinophils # (Auto)2018-11-05 06:37:00* Test Item Value Reference Range Interpretation Comments Eosinophils # (Auto) (test code = 711-2) 0.1 0.0-0.4 [facility]iscoBasophils # (Auto)2018-11-05 06:37:00* Test Item Value Reference Range Interpretation Comments Basophils # (Auto) (test code = 704-7) 0.0 0.0-0.1 [facility] FriscoAbsolute Immature Granulocyte (auto 2018-11-05 06:37:00* Test Item Value Reference Range Interpretation Comments Absolute Immature Granulocyte (auto (andrew t code = Absolute Immature Granulocyte (auto) 0.17 0-0.1 H [facility] FriscoUrine [id number] 10:32:00* Test Item Value Reference Range Interpretation Comments Urine Culture (test code = 630-4) Organism: ESCHERICHIA COLI [facility] FriscoNeutrophils % (Manual)2018-11-03 09:54:00 * Test Item Value Reference Range Interpretation Comments Neutrophils % (Manual) (test code = 79533-6) 95 40-74 H [facility] FriscoLymphocytes % (Manual)2018-11-03 09:54:00 * Test Item Value Reference Range Interpretation Comments Lymphocytes % (Manual) (test code = 737-7) 3 19-48 L [facility] FriscoMonocytes % (Manual)2018-11-03 09:54:00* Test Item Value Reference Range Interpretation Comments Monocytes % (Manual) (test code = 744-3) 2 3.4-9.0 L [facility] FriscoDifferential Total Cells Counted 2018-11-03 09:42:00* Test Item Value Reference Range Interpretation Comments Differential Total Cells Counted (test code = Differsabas tial Total Cells Counted) 100 [facility] FriscoPlatelet Gaptfkim8986-65-02 09:42:00* Test Item Value Reference Range Interpretation Comments Platelet Estimate (test code = 78240-3) ADEQUATE [facility] FriscoPlatelet Morphology Hxkjlhc7586-90-18 09:42:00* Test Item Value Reference Range Interpretation Comments Platelet Morphology Comment (test code = 95993-8) NORMAL [facility] FriscoRed Cell Morphology Ehbjouf9975-56-44 09:42:00* Test Item Value Reference Range Interpretation Comments Red Cell Morphology Comment (test code = 6742-1) NORMAL [facility] FriscoTotal Wbtyuptqj6559-55-10 07:28:00* Test Item Value Reference Range Interpretation Comments Total Bilirubin (test code = 1975-2) 0.8 0.2-1.2 [facility] FriscoAspartate Amino Transf (AST/SGOT) 2018-11-03 07:28:00* Test Item Value Reference Range Interpretation Comments Aspartate Amino Transf (AST/SGOT) (test code = Aspartate Amino Transf (AST/SGOT)) 16 5-34 [facility] FriscoAlanine Aminotransferase (ALT/SGPT) 2018-11-03 07:28:00* Test Item Value Reference Range Interpretation Comments Alanine Aminotransferase (ALT/SGPT) (test code = 1742-6) 23 0-55 [facility]iscoTotal Bxnwolc7332-30-25 07:28:00* Test Item Value Reference Range Interpretation Comments Total Protein (test code = 2885-2) 6.2 6.5-8.1 L [facility] FriscoAlbumin2019-06-19 07:28:00* Test Item Value Reference Range Interpretation Comments Albumin (test code = 1751-7) 2.4 3.5-5.0 L [facility] FriscoGlobulin2019-06-19 07:28:00* Test Item Value Reference Range Interpretation Comments Globulin (test code = 65307-5) 3.8 2.3-3.5 H [facility] FriscoAlbumin/Globulin Rabzt4613-72-87 07:28:00 * Test Item Value Reference Range Interpretation Comments Albumin/Globulin Ratio (test code = 1759-0) 0.6 0.8-2.0 L [facility] FriscoAlkaline Kkfguivlyni6121-99-70 07:28:00* Test Item Value Reference Range Interpretation Comments Alkaline Phosphatase (test code = 6768-6) 147 40-150 [facility] FriscoUrine FZO5035-04-05 20:28:00* Test Item Value Reference Range Interpretation Comments Urine WBC (test code = 5821-4) 11-20 0-5 H [facility] FriscoUrine XMC3944-84-37 20:28:00* Test Item Value Reference Range Interpretation Comments Urine RBC (test code = 98208-6) 6-10 0-5 H [facility] FriscoUrine Ymfekkzc2539-18-76 20:28:00* Test Item Value Reference Range Interpretation Comments Urine Bacteria (test code = 57099-1) MANY NONE H [facility] FriscoUrine Epithelial Lslje6072-55-45 20:28:00 * Test Item Value Reference Range Interpretation Comments Urine Epithelial Cells (test code = 51447-2) FEW NONE [facility] FriscoUrine Opiates Oobgjw1807-98-75 20:16:00* Test Item Value Reference Range Interpretation Comments Urine Opiates Screen (test code = 47214-3) POSITIVE NEGATIVE H This test provides only a screen. Positive results should be repeated by a confi rmatory test.[facility] FriscoUrine Barbiturates Screen 2018-11-02 20:16:00* Test Item Value Reference Range Interpretation Comments Urine Barbiturates Screen (test code = 011622892) NEGATIVE NEGA TIVE [facility] FriscoUrine Phencyclidine Qgmgbf9487-44-69 20:16:00* Test Item Value Reference Range Interpretation Comments Urine Phencyclidine Screen (test code = 54995-7) NEGATIVE NEGAT CAROLINE [facility] FriscoUrine Amphetamines Wgxkhy6282-33-23 20:16:00* Test Item Value Reference Range Interpretation Comments Urine Amphetamines Screen (test code = 88448-8) NEGATIVE NEGATI VE [facility]iscoUrine Methamphetamines Eotwwj3536-61-37 20:16:00* Test Item Value Reference Range Interpretation Comments Urine Methamphetamines Screen (test code = Urine Metha mphetamines Screen) NEGATIVE NEGATIVE [facility]iscoUrine Benzodiazepines Tfhxuo4575-21-82 20:16:00* Test Item Value Reference Range Interpretation Comments Urine Benzodiazepines Screen (test code = 24704-5) NEGATIVE NEG ATIVE [facility]iscoUrine Cocaine Qplqvi3193-08-48 20:16:00* Test Item Value Reference Range Interpretation Comments Urine Cocaine Screen (test code = 3398-5) NEGATIVE NEGATIVE [facility]iscoUrine Cannabinoids Xuozts3674-10-98 20:16:00* Test Item Value Reference Range Interpretation Comments Urine Cannabinoids Screen (test code = 80592-9) POSITIVE NEGATI VE H This test provides only a screen. Positive results should be repeated by a confi rmatory test.[facility]iscoUrine Methadone Screen 2018-11-02 20:16:00* Test Item Value Reference Range Interpretation Comments Urine Methadone Screen (test code = 05530-6) NEGATIVE NEGATIVE THESE RESULTS ARE FOR MEDICAL TREATMENT ONLYTHIS REPORT CONTAINS UNCONFIR MED SCREENING RESULTS*POSITIVE RESULTS WILL BE CONFIRMED BY REFERENCE LAB UPON R EQUEST CUT-OFFDRUG CLASS CONCENTRATION ng/mLAmphetamines 1000Methamphetamines 1000Cocaine Metabolite 300Opiate 300Phencyc lidine 25Cannabinoid 50Barbiturates 300Benzodiazepine 300Methadone 300[facility]landUrine Iwika0256-60-64 20:15:00* Test Item Value Reference Range Interpretation Comments Urine Color (test code = 5778-6) YELLOW YELLOW [facility]iscoUrine Dulwimk1612-97-56 20:15:00* Test Item Value Reference Range Interpretation Comments Urine Clarity (test code = 26937-8) CLEAR CLEAR [facility] FriscoUrine Specific Lxolpjh0556-39-23 20:15:00 * Test Item Value Reference Range Interpretation Comments Urine Specific [place] (test code = 5811-5) <=1.005 1.010-1.02 5 [facility] FriscoUrine cI8529-22-62 20:15:00* Test Item Value Reference Range Interpretation Comments Urine pH (test code = 93592-2) 7 5-7 [facility]iscoUrine Leukocyte Pgapnjzc9415-24-03 20:15:00* Test Item Value Reference Range Interpretation Comments Urine Leukocyte Esterase (test code = 39223-5) TRACE NEGATIV E H [facility] FriscoUrine Vfonjfu9099-57-25 20:15:00* Test Item Value Reference Range Interpretation Comments Urine Nitrite (test code = 95430-5) POSITIVE NEGATIVE H [facility]iscoUrine Mxyvsgc1888-64-29 20:15:00* Test Item Value Reference Range Interpretation Comments Urine Protein (test code = 32819-3) 1+ NEGATIVE H [facility]iscoUrine Glucose (UA)2018-11-02 20:15:00* Test Item Value Reference Range Interpretation Comments Urine Glucose (UA) (test code = 00491-3) NEGATIVE NEGATIVE [facility]iscoUrine Herobyp8336-01-62 20:15:00* Test Item Value Reference Range Interpretation Comments Urine Ketones (test code = 96355-3) 1+ NEGATIVE H [facility] FriscoUrine Idogrcgjdttl4049-34-90 20:15:00* Test Item Value Reference Range Interpretation Comments Urine Urobilinogen (test code = 22466-6) 1 0.2-1 [facility]iscoUrine Cytperxex7314-91-90 20:15:00* Test Item Value Reference Range Interpretation Comments Urine Bilirubin (test code = 1977-8) NEGATIVE NEGATIVE [facility] FriscoUrine Xlepp9080-84-98 20:15:00* Test Item Value Reference Range Interpretation Comments Urine Blood (test code = 39888-1) MODERATE NEGATIVE [facility] FriscoCT ABDOMEN/PELVIS [id number] 18:46:00 [facility] [address] [place] [address] Patient Name: JANETTE SONG MR #: [id number] : 1970 Age/Sex: 47/F Req #: [id number] Adm Physician: Ordered by: CANDACE KATZ MD Report #: [id number] Location: ER Room/Bed: Procedure: C T/CT ABDOMEN/PELVIS W Exam Date: 11/02/18 Exam Time: 1819 REPORT STATUS: Signed CT A bdomen And Pelvis with Intravenous Contrast INDICATION: Nausea, vomiting, f ever abd pain with leukocytosis [id number] TECHNIQUE: Thin co llimation axial images obtained from the diaphragm to the level of the pubic s ymphysis following the uneventful administration of 100 cc of low osmolar, no nionic intravenous contrast. Dose reduction techniques used: Automated expo sure control, adjustment of the mAs and/or kVp according to patient size, mitzi dardized low-dose protocol, and/or iterative reconstruction technique. RADIATION DOSE: Total DLP: 203.18 mGy*cm Estimated effective dose: (DLP x 0.015 x size factor) mSv CTDIvol has been reviewed. It is be low the limits set by the Radiation Protocol Committee (RPC). COMPARISON: CT abdomen/pelvis 04/04/2018. ABDOMEN FINDINGS: Lung Bases: Clear. The visualized portions of the mediastinum are normal.. Liver: Normal atten uation. No evidence for mass. Gallbladder: Absent. No biliary ductal dilat ation. Pancreas: Normal attenuation without mass or ductal dilatation. Spleen: Normal in size. No evidence of mass.. Adrenal Glands: No evidence for mass. Kidneys: Right: Heterogeneous enhancement of the upper pole and proximal interpolar cortex is new. No perinephric inflammation. No soft tissue mass. No hydronephrosis. Left: Heterogeneous enhancement of the upper pole and proximal interpolar region is new. No perinephric inflammation. No soft tissue mass. No hydronephrosis. Lymph Nodes: No enlarged abdo jovani lymph nodes. A left periaortic lymph node measures 11 mm and is new.. Aorta: Normal in diameter. Two arteries supply the right kidney. A single artery supplies the left kidney. PELVIS FINDINGS: Bowel: Stoma ch: Normal. Small Bowel: Normal in caliber with normal wall thickness. La rge Bowel: Mild to moderate burden of stool in the right colon, proximal trans verse colon. No dilatation, mural thickening, or pericolonic inflammation. Appendix: Normal appendix. Bladder: Underdistended but otherwise normal. Ureters: No ureteral dilatation. There is mucosal hyperemia of the proximal and mid left ureter. The uterus is absent. There are no adnexal masses. No free fluid or fluid collection. Bones: Stable levoscoliosis. No focal o sseous lesions. Soft tissues: Bilateral breast prostheses are stable. IMPRESSION: 1. New heterogeneous enhancement of the kidneys is suggestive of pyelonephritis. Mild hyperemia of the proximal left ureter is suggestive of UTI. Please correlate with urinalysis and urine culture. A prominent left periaortic lymph node is likely reactive. 2. No evidence for bowel obstru ction or inflammation. Normal appendix. 3. Cholecystectomy and hysterectomy . Signed by: Dr. Jesus Garza MD on 11/02/2018 6:58 PM Dictated By: JESUS GARZA MD 57 COPY TO: ETHAN KATZ MD Prothrombin Nwvb6942-12-71 18:15:00* Test Item Value Reference Range Interpretation Comments Prothrombin Time (test code = 5902-2) 14.0 11.9-14.5 [facility] FriscoProthromb Time International Ratio 2018-11-02 18:15:00* Test Item Value Reference Range Interpretation Comments Prothromb Time International Ratio (test code = 6301-6) 1.03 Oral Anticoagulant Therapy INR Values:1. Low Intensity Therapy 1.5 - 2.02 . Moderate Intensity Therapy 2.0 - 3.03. High Intensity Therapy(1) 2.5 - 3. 54. High Intensity Therapy(2) 3.0 - 4.05. Panic Value INR > 5.0 [facility] FriscoActivated Partial Thromboplast Time 2018-11-02 18:15:00* Test Item Value Reference Range Interpretation Comments Activated Partial Thromboplast Time (test code = 22105-5) 36.2 23.8-35.5 H [facility] FriscoAmylase Yanes1556-72-51 18:14:00* Test Item Value Reference Range Interpretation Comments Amylase Level (test code = 1798-8) 61 25-125 [facility] FriscoLipase2019-06-18 18:14:00* Test Item Value Reference Range Interpretation Comments Lipase (test code = 3040-3) 10 8-78 [facility] FriscoUrine Pkbfe3116-42-29 09:25:00* Test Item Value Reference Range Interpretation Comments Urine Blood (test code = 33555-8) NEGATIVE NEGATIVE [facility] FriscoUrine EPX7308-09-11 09:25:00* Test Item Value Reference Range Interpretation Comments Urine WBC (test code = 5821-4) NONE 0-5 [facility] UJO9110-09-79 09:25:00* Test Item Value Reference Range Interpretation Comments Urine RBC (test code = 21728-3) NONE 0-5 [facility] Zyrfpxvl4525-86-66 09:25:00* Test Item Value Reference Range Interpretation Comments Urine Bacteria (test code = 26495-7) RARE NONE [facility] Epithelial Hbcyy0695-33-70 09:25:00 * Test Item Value Reference Range Interpretation Comments Urine Epithelial Cells (test code = 80171-7) RARE NONE [facility] Vqtmx8953-92-34 09:25:00* Test Item Value Reference Range Interpretation Comments Urine Blood (test code = 82896-8) NEGATIVE NEGATIVE [facility] ICL0193-59-11 09:25:00* Test Item Value Reference Range Interpretation Comments Urine WBC (test code = 5821-4) NONE 0-5 [facility] OHZ5383-61-95 09:25:00* Test Item Value Reference Range Interpretation Comments Urine RBC (test code = 22865-1) NONE 0-5 [facility] Pujdxmcx0967-31-66 09:25:00* Test Item Value Reference Range Interpretation Comments Urine Bacteria (test code = 96255-4) RARE NONE [facility] Epithelial Yvqnt0292-58-06 09:25:00 * Test Item Value Reference Range Interpretation Comments Urine Epithelial Cells (test code = 76976-8) RARE NONE [facility] Zjzni4175-19-73 09:12:00* Test Item Value Reference Range Interpretation Comments Urine Color (test code = 5778-6) YELLOW YELLOW [facility] Smwxnir4958-67-79 09:12:00* Test Item Value Reference Range Interpretation Comments Urine Clarity (test code = 56721-3) CLEAR CLEAR [facility] Specific Pmdygyi8805-46-28 09:12:00 * Test Item Value Reference Range Interpretation Comments Urine Specific [place] (test code = 5811-5) 1.020 1.010-1.02 5 [facility] [id number] 09:12:00* Test Item Value Reference Range Interpretation Comments Urine pH (test code = 65289-3) 6.5 5-7 [facility]iscoUrine Leukocyte Tzveikcn2933-53-91 09:12:00* Test Item Value Reference Range Interpretation Comments Urine Leukocyte Esterase (test code = 5799-2) NEGATIVE NEGATIVE [facility] FriscoUrine Uhrqqnj5762-40-30 09:12:00* Test Item Value Reference Range Interpretation Comments Urine Nitrite (test code = 66619-4) NEGATIVE NEGATIVE [facility] FriscoUrine Ozgchmf1312-89-67 09:12:00* Test Item Value Reference Range Interpretation Comments Urine Protein (test code = 5804-0) NEGATIVE NEGATIVE [facility] Glucose (UA)2018-04-06 09:12:00* Test Item Value Reference Range Interpretation Comments Urine Glucose (UA) (test code = 2349-9) NEGATIVE NEGATIVE [facility]iscoUrine Wvbjbwd6094-38-64 09:12:00* Test Item Value Reference Range Interpretation Comments Urine Ketones (test code = 85148-5) 1+ NEGATIVE H [facility] Xdejbwsdnjri9108-97-96 09:12:00* Test Item Value Reference Range Interpretation Comments Urine Urobilinogen (test code = 09025-7) 0.2 0.2-1 [facility]iscoUrine Bunsebfkb3316-30-61 09:12:00* Test Item Value Reference Range Interpretation Comments Urine Bilirubin (test code = 1978-6) NEGATIVE NEGATIVE [facility]iscoUrine Ntwzs8070-23-18 09:12:00* Test Item Value Reference Range Interpretation Comments Urine Color (test code = 5778-6) YELLOW YELLOW [facility]iscoUrine Zokwsrz1389-63-88 09:12:00* Test Item Value Reference Range Interpretation Comments Urine Clarity (test code = 05380-8) CLEAR CLEAR [facility] Specific Hckfqae8668-00-95 09:12:00 * Test Item Value Reference Range Interpretation Comments Urine Specific [place] (test code = 5811-5) 1.020 1.010-1.02 5 [facility] FriscoUrine wZ0425-07-51 09:12:00* Test Item Value Reference Range Interpretation Comments Urine pH (test code = 04149-0) 6.5 5-7 [facility]iscoUrine Leukocyte Qmyrfxkw6389-60-61 09:12:00* Test Item Value Reference Range Interpretation Comments Urine Leukocyte Esterase (test code = 5799-2) NEGATIVE NEGATIVE [facility] FriscoUrine Shuspco7090-35-31 09:12:00* Test Item Value Reference Range Interpretation Comments Urine Nitrite (test code = 79071-0) NEGATIVE NEGATIVE [facility] FriscoUrine Tqqnidi8024-65-96 09:12:00* Test Item Value Reference Range Interpretation Comments Urine Protein (test code = 5804-0) NEGATIVE NEGATIVE [facility]iscoUrine Glucose (UA)2018-04-06 09:12:00* Test Item Value Reference Range Interpretation Comments Urine Glucose (UA) (test code = 2349-9) NEGATIVE NEGATIVE [facility]iscoUrine Cxqqcxp4763-86-37 09:12:00* Test Item Value Reference Range Interpretation Comments Urine Ketones (test code = 86521-4) 1+ NEGATIVE H [facility] FriscoUrine Wyblfgfflvub4800-23-94 09:12:00* Test Item Value Reference Range Interpretation Comments Urine Urobilinogen (test code = 89798-0) 0.2 0.2-1 [facility]iscoUrine Aurxrabde9406-16-74 09:12:00* Test Item Value Reference Range Interpretation Comments Urine Bilirubin (test code = 1978-6) NEGATIVE NEGATIVE [facility] FriscoMagnesium Nvqxu9947-37-17 06:16:00* Test Item Value Reference Range Interpretation Comments Magnesium Level (test code = 57187-8) 1.8 1.3-2.1 [facility] FriscoAmylase Waasn4718-72-25 06:16:00* Test Item Value Reference Range Interpretation Comments Amylase Level (test code = 1798-8) 66 25-125 [facility] FriscoLipase2018-11-20 06:16:00* Test Item Value Reference Range Interpretation Comments Lipase (test code = 3040-3) 18 8-78 [facility] FriscoMagnesium Bzxau2003-18-09 06:16:00* Test Item Value Reference Range Interpretation Comments Magnesium Level (test code = 78663-4) 1.8 1.3-2.1 [facility] FriscoAmylase Itcji1074-04-44 06:16:00* Test Item Value Reference Range Interpretation Comments Amylase Level (test code = 1798-8) 66 25-125 [facility] FriscoLipase2018-11-20 06:16:00* Test Item Value Reference Range Interpretation Comments Lipase (test code = 3040-3) 18 8-78 [facility] FriscoMagnesium Skgoe6475-63-01 06:16:00* Test Item Value Reference Range Interpretation Comments Magnesium Level (test code = 06002-6) 1.8 1.3-2.1 [facility] Ngjis5962-87-31 05:58:00* Test Item Value Reference Range Interpretation Comments Sodium Level (test code = 2951-2) 138 136-145 [facility] FriscoPotassium Pblrd1439-23-82 05:58:00* Test Item Value Reference Range Interpretation Comments Potassium Level (test code = 2823-3) 3.3 3.5-5.1 L [facility] FriscoChloride Zadup1343-36-02 05:58:00* Test Item Value Reference Range Interpretation Comments Chloride Level (test code = 2075-0) 104 98-107 [facility] FriscoCarbon Dioxide Saobk3456-08-37 05:58:00* Test Item Value Reference Range Interpretation Comments Carbon Dioxide Level (test code = 2028-9) 26 22-29 [facility] FriscoAnion Ytw0354-33-77 05:58:00* Test Item Value Reference Range Interpretation Comments Anion Gap (test code = 61127-1) 11.3 8-16 [facility] FriscoBlood Urea Qgzoduwu6763-60-46 05:58:00* Test Item Value Reference Range Interpretation Comments Blood Urea Nitrogen (test code = 3094-0) 6 7-26 L [facility] FriscoCreatinine2018-11-20 05:58:00* Test Item Value Reference Range Interpretation Comments Creatinine (test code = 2160-0) 0.72 0.57-1.11 [facility] FriscoBUN/Creatinine Ohfmn8008-49-20 05:58:00* Test Item Value Reference Range Interpretation Comments BUN/Creatinine Ratio (test code = 3097-3) 8 6-25 [facility] FriscoEstimat Glomerular Filtration Rate 2018-04-06 05:58:00* Test Item Value Reference Range Interpretation Comments Estimat Glomerular Filtration Rate (test code = 383557778) > 60 >60 Ranges were taken from the National Kidney Disease Education Program and the [facility] Foundation literature.Reference ranges:60 or greater: Yvkepy82-23 ( for 3 consecutive months): Chronic kidney disease 15 or less: Kidney failureBaylor Scott and [facility] – FriscoGlucose Hvrvv2290-19-98 05:58:00* Test Item Value Reference Range Interpretation Comments Glucose Level (test code = SOD5482) 119 74-118 H [facility] FriscoCalcium Oehxt7727-06-47 05:58:00* Test Item Value Reference Range Interpretation Comments Calcium Level (test code = 07422-5) 8.8 8.4-10.2 [facility] FriscoTotal Kpwmkynfj7823-34-61 05:58:00* Test Item Value Reference Range Interpretation Comments Total Bilirubin (test code = 1975-2) 0.8 0.2-1.2 [facility] FriscoAspartate Amino Transf (AST/SGOT) 2018-04-06 05:58:00* Test Item Value Reference Range Interpretation Comments Aspartate Amino Transf (AST/SGOT) (test code = Aspartate Amino Transf (AST/SGOT)) 26 5-34 [facility] FriscoAlanine Aminotransferase (ALT/SGPT) 2018-04-06 05:58:00* Test Item Value Reference Range Interpretation Comments Alanine Aminotransferase (ALT/SGPT) (test code = 1742-6) 28 0-55 [facility] FriscoTotal Wvrmmug9033-80-77 05:58:00* Test Item Value Reference Range Interpretation Comments Total Protein (test code = 2885-2) 6.2 6.5-8.1 L [facility] FriscoAlbumin2018-11-20 05:58:00* Test Item Value Reference Range Interpretation Comments Albumin (test code = 1751-7) 3.7 3.5-5.0 [facility] FriscoGlobulin2018-11-20 05:58:00* Test Item Value Reference Range Interpretation Comments Globulin (test code = 59580-3) 2.5 2.3-3.5 [facility] FriscoAlbumin/Globulin Ncmrg9506-29-79 05:58:00 * Test Item Value Reference Range Interpretation Comments Albumin/Globulin Ratio (test code = 1759-0) 1.5 0.8-2.0 [facility] FriscoAlkaline Upjcjzussrd9745-95-04 05:58:00* Test Item Value Reference Range Interpretation Comments Alkaline Phosphatase (test code = 6768-6) 74 40-150 [facility] Luagn8264-08-22 05:58:00* Test Item Value Reference Range Interpretation Comments Sodium Level (test code = 2951-2) 138 136-145 [facility] FriscoPotassium Hzhyd6489-92-10 05:58:00* Test Item Value Reference Range Interpretation Comments Potassium Level (test code = 2823-3) 3.3 3.5-5.1 L [facility] FriscoChloride Stgms9812-69-54 05:58:00* Test Item Value Reference Range Interpretation Comments Chloride Level (test code = 2075-0) 104 98-107 [facility] FriscoCarbon Dioxide Mtvsk7067-64-93 05:58:00* Test Item Value Reference Range Interpretation Comments Carbon Dioxide Level (test code = 2028-9) 26 22-29 [facility] FriscoAnion Btb6221-49-48 05:58:00* Test Item Value Reference Range Interpretation Comments Anion Gap (test code = 71745-6) 11.3 8-16 [facility] FriscoBlood Urea Wkcwolng4211-57-49 05:58:00* Test Item Value Reference Range Interpretation Comments Blood Urea Nitrogen (test code = 3094-0) 6 7-26 L [facility] FriscoCreatinine2018-11-20 05:58:00* Test Item Value Reference Range Interpretation Comments Creatinine (test code = 2160-0) 0.72 0.57-1.11 [facility]iscoBUN/Creatinine Sofyj4050-72-31 05:58:00* Test Item Value Reference Range Interpretation Comments BUN/Creatinine Ratio (test code = 3097-3) 8 6-25 [facility] FriscoEstimat Glomerular Filtration Rate 2018-04-06 05:58:00* Test Item Value Reference Range Interpretation Comments Estimat Glomerular Filtration Rate (test code = 209733742) > 60 >60 Ranges were taken from the National Kidney Disease Education Program and the [facility] Kidney Foundation literature.Reference ranges:60 or greater: Uehfri53-88 ( for 3 consecutive months): Chronic kidney disease 15 or less: Kidney failureBaylor Scott and [facility] – FriscoGlucose Jbbto9429-27-07 05:58:00* Test Item Value Reference Range Interpretation Comments Glucose Level (test code = SUD2274) 119 74-118 H [facility] FriscoCalcium Wscnu0185-70-17 05:58:00* Test Item Value Reference Range Interpretation Comments Calcium Level (test code = 53949-8) 8.8 8.4-10.2 [facility] FriscoTotal Mmofcpmrs6394-74-61 05:58:00* Test Item Value Reference Range Interpretation Comments Total Bilirubin (test code = 1975-2) 0.8 0.2-1.2 [facility] FriscoAspartate Amino Transf (AST/SGOT) 2018-04-06 05:58:00* Test Item Value Reference Range Interpretation Comments Aspartate Amino Transf (AST/SGOT) (test code = Aspartate Amino Transf (AST/SGOT)) 26 5-34 [facility] FriscoAlanine Aminotransferase (ALT/SGPT) 2018-04-06 05:58:00* Test Item Value Reference Range Interpretation Comments Alanine Aminotransferase (ALT/SGPT) (test code = 1742-6) 28 0-55 [facility] FriscoTotal Btajxtu7602-90-08 05:58:00* Test Item Value Reference Range Interpretation Comments Total Protein (test code = 2885-2) 6.2 6.5-8.1 L [facility] FriscoAlbumin2018-11-20 05:58:00* Test Item Value Reference Range Interpretation Comments Albumin (test code = 1751-7) 3.7 3.5-5.0 [facility] FriscoGlobulin2018-11-20 05:58:00* Test Item Value Reference Range Interpretation Comments Globulin (test code = 73168-6) 2.5 2.3-3.5 [facility] FriscoAlbumin/Globulin Tcczp1637-13-09 05:58:00 * Test Item Value Reference Range Interpretation Comments Albumin/Globulin Ratio (test code = 1759-0) 1.5 0.8-2.0 [facility] FriscoAlkaline Pwebwildadh8271-30-21 05:58:00* Test Item Value Reference Range Interpretation Comments Alkaline Phosphatase (test code = 6768-6) 74 40-150 [facility] FriscoWhite Blood Tbftg9476-16-96 05:43:00* Test Item Value Reference Range Interpretation Comments White Blood Count (test code = 6690-2) 14.08 4.8-10.8 H [facility] FriscoRed Blood Sxjdp6970-04-98 05:43:00* Test Item Value Reference Range Interpretation Comments Red Blood Count (test code = 789-8) 3.65 3.6-5.1 [facility] FriscoHemoglobin2018-11-20 05:43:00* Test Item Value Reference Range Interpretation Comments Hemoglobin (test code = 34300-8) 12.2 12.0-16.0 [facility] FriscoHematocrit2018-11-20 05:43:00* Test Item Value Reference Range Interpretation Comments Hematocrit (test code = 4544-3) 35.0 34.2-44.1 [facility] FriscoMean Corpuscular Mvtmfp3704-84-41 05:43:00* Test Item Value Reference Range Interpretation Comments Mean Corpuscular Volume (test code = 787-2) 95.9 81-99 [facility] FriscoMean Corpuscular Aqyontdfqi3031-70-43 05:43:00* Test Item Value Reference Range Interpretation Comments Mean Corpuscular Hemoglobin (test code = 785-6) 33.4 28-32 H [facility] FriscoMean Corpuscular Hemoglobin Concent 2018-04-06 05:43:00* Test Item Value Reference Range Interpretation Comments Mean Corpuscular Hemoglobin Concent (test code = 786-4) 34.9 31-35 [facility] FriscoRed Cell Distribution Fwoud9522-34-25 05:43:00* Test Item Value Reference Range Interpretation Comments Red Cell Distribution Width (test code = 36916-7) 12.4 11.7 -14.4 [facility] FriscoPlatelet Dvyyu9879-48-05 05:43:00* Test Item Value Reference Range Interpretation Comments Platelet Count (test code = 777-3) 292 140-360 [facility] FriscoNeutrophils (%) (Auto)2018-04-06 05:43:00 * Test Item Value Reference Range Interpretation Comments Neutrophils (%) (Auto) (test code = 06406-7) 73.4 38.7-80.0 [facility] FriscoLymphocytes (%) (Auto)2018-04-06 05:43:00 * Test Item Value Reference Range Interpretation Comments Lymphocytes (%) (Auto) (test code = 736-9) 18.8 18.0-39.1 [facility] FriscoMonocytes (%) (Auto)2018-04-06 05:43:00* Test Item Value Reference Range Interpretation Comments Monocytes (%) (Auto) (test code = 5905-5) 7.2 4.4-11.3 [facility] FriscoEosinophils (%) (Auto)2018-04-06 05:43:00 * Test Item Value Reference Range Interpretation Comments Eosinophils (%) (Auto) (test code = 713-8) 0.0 0.0-6.0 [facility] FriscoBasophils (%) (Auto)2018-04-06 05:43:00* Test Item Value Reference Range Interpretation Comments Basophils (%) (Auto) (test code = 706-2) 0.1 0.0-1.0 [facility] FriscoIM GRANULOCYTES %2018-04-06 05:43:00* Test Item Value Reference Range Interpretation Comments IM GRANULOCYTES % (test code = IM GRANULOCYTES %) 0.5 0.0- 1.0 [facility] FriscoNeutrophils # (Auto)2018-04-06 05:43:00* Test Item Value Reference Range Interpretation Comments Neutrophils # (Auto) (test code = 751-8) 10.3 2.1-6.9 H [facility] FriscoLymphocytes # (Auto)2018-04-06 05:43:00* Test Item Value Reference Range Interpretation Comments Lymphocytes # (Auto) (test code = 89557-6) 2.7 1.0-3.2 [facility] FriscoMonocytes # (Auto)2018-04-06 05:43:00* Test Item Value Reference Range Interpretation Comments Monocytes # (Auto) (test code = 742-7) 1.0 0.2-0.8 H [facility] FriscoEosinophils # (Auto)2018-04-06 05:43:00* Test Item Value Reference Range Interpretation Comments Eosinophils # (Auto) (test code = 711-2) 0.0 0.0-0.4 [facility] FriscoBasophils # (Auto)2018-04-06 05:43:00* Test Item Value Reference Range Interpretation Comments Basophils # (Auto) (test code = 704-7) 0.0 0.0-0.1 [facility] FriscoAbsolute Immature Granulocyte (auto 2018-04-06 05:43:00* Test Item Value Reference Range Interpretation Comments Absolute Immature Granulocyte (auto (andrew t code = Absolute Immature Granulocyte (auto) 0.07 0-0.1 [facility] FriscoWhite Blood Ppvny2564-33-57 05:43:00* Test Item Value Reference Range Interpretation Comments White Blood Count (test code = 6690-2) 14.08 4.8-10.8 H [facility] FriscoRed Blood Pibxx6957-40-08 05:43:00* Test Item Value Reference Range Interpretation Comments Red Blood Count (test code = 789-8) 3.65 3.6-5.1 [facility] FriscoHemoglobin2018-11-20 05:43:00* Test Item Value Reference Range Interpretation Comments Hemoglobin (test code = 38298-1) 12.2 12.0-16.0 [facility] FriscoHematocrit2018-11-20 05:43:00* Test Item Value Reference Range Interpretation Comments Hematocrit (test code = 4544-3) 35.0 34.2-44.1 [facility] FriscoMean Corpuscular Cveqpc1825-65-63 05:43:00* Test Item Value Reference Range Interpretation Comments Mean Corpuscular Volume (test code = 787-2) 95.9 81-99 [facility] FriscoMean Corpuscular Ucazdrmpbo1794-52-06 05:43:00* Test Item Value Reference Range Interpretation Comments Mean Corpuscular Hemoglobin (test code = 785-6) 33.4 28-32 H [facility] FriscoMean Corpuscular Hemoglobin Concent 2018-04-06 05:43:00* Test Item Value Reference Range Interpretation Comments Mean Corpuscular Hemoglobin Concent (test code = 786-4) 34.9 31-35 [facility] FriscoRed Cell Distribution Unazy0181-28-45 05:43:00* Test Item Value Reference Range Interpretation Comments Red Cell Distribution Width (test code = 13147-4) 12.4 11.7 -14.4 [facility] FriscoPlatelet Deufa8333-82-86 05:43:00* Test Item Value Reference Range Interpretation Comments Platelet Count (test code = 777-3) 292 140-360 [facility] FriscoNeutrophils (%) (Auto)2018-04-06 05:43:00 * Test Item Value Reference Range Interpretation Comments Neutrophils (%) (Auto) (test code = 25719-7) 73.4 38.7-80.0 [facility] FriscoLymphocytes (%) (Auto)2018-04-06 05:43:00 * Test Item Value Reference Range Interpretation Comments Lymphocytes (%) (Auto) (test code = 736-9) 18.8 18.0-39.1 [facility] FriscoMonocytes (%) (Auto)2018-04-06 05:43:00* Test Item Value Reference Range Interpretation Comments Monocytes (%) (Auto) (test code = 5905-5) 7.2 4.4-11.3 [facility] FriscoEosinophils (%) (Auto)2018-04-06 05:43:00 * Test Item Value Reference Range Interpretation Comments Eosinophils (%) (Auto) (test code = 713-8) 0.0 0.0-6.0 [facility] FriscoBasophils (%) (Auto)2018-04-06 05:43:00* Test Item Value Reference Range Interpretation Comments Basophils (%) (Auto) (test code = 706-2) 0.1 0.0-1.0 [facility] FriscoIM GRANULOCYTES %2018-04-06 05:43:00* Test Item Value Reference Range Interpretation Comments IM GRANULOCYTES % (test code = IM GRANULOCYTES %) 0.5 0.0- 1.0 [facility] FriscoNeutrophils # (Auto)2018-04-06 05:43:00* Test Item Value Reference Range Interpretation Comments Neutrophils # (Auto) (test code = 751-8) 10.3 2.1-6.9 H [facility] FriscoLymphocytes # (Auto)2018-04-06 05:43:00* Test Item Value Reference Range Interpretation Comments Lymphocytes # (Auto) (test code = 49111-1) 2.7 1.0-3.2 [facility] FriscoMonocytes # (Auto)2018-04-06 05:43:00* Test Item Value Reference Range Interpretation Comments Monocytes # (Auto) (test code = 742-7) 1.0 0.2-0.8 H [facility] FriscoEosinophils # (Auto)2018-04-06 05:43:00* Test Item Value Reference Range Interpretation Comments Eosinophils # (Auto) (test code = 711-2) 0.0 0.0-0.4 [facility] FriscoBasophils # (Auto)2018-04-06 05:43:00* Test Item Value Reference Range Interpretation Comments Basophils # (Auto) (test code = 704-7) 0.0 0.0-0.1 [facility] FriscoAbsolute Immature Granulocyte (auto 2018-04-06 05:43:00* Test Item Value Reference Range Interpretation Comments Absolute Immature Granulocyte (auto (andrew t code = Absolute Immature Granulocyte (auto) 0.07 0-0.1 [facility] FriscoABDOMEN-1VIEW (KUB)2018-04-05 20:33:00 [place] [address] Patient Name: JANETTE SONG MR #: [id number] : 1970 Age/Sex: 47/F Req #: [id number] Adm Physician: HAMIDA DE LA TORRE MD Ordered by: GOYO MCINTYRE MD Report #: [id number] Location: [facility] Room/Bed: [place] [address] Procedure: [id number] DX/SAI MEN-1VIEW (KUB) Exam Date: Exam Time: REPORT STATUS: Signed EXAM: ABDOMEN-1VIEW (K UB) DATE: 04/05/2018 6:54 PM INDICATION: Emesis COMPARISON: 04/04 CT, no report available FINDINGS: Bowel Gas Pattern: Non-obstruc tive. Pneumoperitoneum: None. Suspicious Calcifications: None. Ot her: Cholecystectomy clips. IMPRESSION: No acute findings. Signed b y: Dr. Isis Sol MD on 04/05/2018 8:40 PM Dictated By: ISIS SOL MD 39 Transcribed B y: CAMILO on 04/05/182039 COPY TO: GOYO MCINTYRE MD CT ABD/PEL WITH POMWZMCS-TRPS8003-16-18 20:24:00 [place] [address] Patient Name: JANETTE SONG MR #: [id number] : 1970 Age/Sex: 47/F Req #: [id number] Adm Physician: Ordered by: RITA EDWARD MD Report #: [id number] Location: [facility] Room/Bed: Procedure: [id number] HO PD/CT ABD/PEL WITH CONTRAST-HOPD Exam Date: 04/04/18 Exam Time: 1956 REPORT STATUS: Sig mukesh EXAM: CT ABDOMEN AND PELVIS WITH IV CONTRAST INDICATION: Nausea, vomit ing, abdominal pain COMPARISON: None TECHNIQUE: The abdomen and pelvis wer e scanned using a multidetector helical scanner. Coronal and sagittal reformat ions were obtained. Dose modulation, iterative reconstruction, and/or weight b ased adjustment of the mA/kV was utilized to reduce the radiation dose to as l ow as reasonably achievable. Routine protocol performed. IV Contrast: 100 cc Isovue-370 Oral Contrast: None CTDIvol has been reviewed. It is below the l imits set by the Radiation Protocol Committee (RPC). FINDINGS: LOWER TH ORAX: No consolidations LIVER: No masses BILIARY: Cholecystectomy. No [place] dilation. SPLEEN: No masses PANCREAS: No masses ADRENALS: No no dules KIDNEYS: No enhancing masses. No hydronephrosis. GI TRACT: No wall thickening or obstruction. Normal appendix. VESSELS: Unremarkable PE RITONEUM/RETROPERITONEUM: No free air or fluid LYMPH NODES: No lymphadenopathy REPRODUCTIVE ORGANS: Hysterectomy. Normal ovaries. BLADDER: Normal SOFT TISSUES: Bilateral breast implants. BONES: No suspicious bone lesions. IMPRESSION: Normal CT of the abdomen and pelvis. Signed by: Dr. Manuel Diaz M.D. on 04/04/2018 8:31 PM Dictated By: MANUEL DIAZ MD El ectronically Signed By: MANUEL DIAZ MD on 04/04/182030 Transcribed By: YADIEL GALLEGOS on 04/04/182030 COPY TO: RITA EDWARD MD
== END 2020-02-01 20:50 | disposition home or self-care (01) ==
LOC: ER 20:45
DX: M32.9 Systemic lupus erythematosus, unspecified (principal); L40.9 Psoriasis, unspecified; M06.9 Rheumatoid arthritis, unspecified; M79.7 Fibromyalgia; G89.29 Other chronic pain
CPT/HCPCS: 99282

== ENCOUNTER 2021-01-08 14:35 | Inpatient (IN) | payer MEDICARE, OTHER ==
[~2021-01-08] VITALS: Ht 149.9 cm; Wt 52.6 kg
[2021-01-08] MEDS ORDERED: ASPIRIN 81 MG CHEW TAB PO ONE (15:15)
[2021-01-08 15:41] LABS: HEMATOCRIT 41.1 % (34.2-44.1); HEMOGLOBIN 13.6 g/dL (12.0-16.0); RED BLOOD COUNT 4.54 x10e6/uL (3.6-5.1)
[2021-01-08 15:42] LABS: BASOPHILS % 0.2 % (0.0-1.0); EOSINOPHILS # (AUTO) 0.1 (0.0-0.4); EOSINOPHILS % 0.7 % (0.0-6.0); LYMPHOCYTES # (AUTO) 1.1 (1.0-3.2); LYMPHOCYTES % 12.9 % (18.0-39.1); MEAN CORPUSCULAR HGB CONC 33.1 g/dL (31-35); MEAN CORPUSCULAR VOLUME 90.5 fL (81-99); MONOCYTES # (AUTO) 0.7 (0.2-0.8); MONOCYTES % 7.9 % (4.4-11.3); NEUTROPHILS # (AUTO) 6.3 (2.1-6.9); NEUTROPHILS % 75.6 % (38.7-80.0); PLATELET COUNT 560 x10e3/uL (140-360); RED CELL DISTRIBUTION WIDTH 11.3 % (11.7-14.4)
[2021-01-08] MEDS: DEXAMETHASONE SOD PHOS 10 MG/1 ML VIAL IV SCH (16:04)
[2021-01-08] MEDS: CEFTRIAXONE 1 GM in SODIUM CHLORIDE 0.9% 50ML 50 ML IV SCH (16:04)
[2021-01-08 16:30] LABS: ALBUMIN 3.5 g/dL (3.5-5.0); ALBUMIN/GLOBULIN RATIO 0.9 (0.8-2.0); ANION GAP 16.3 mmol/L (8-16); CALCIUM 9.1 mg/dL (8.4-10.2); CREATINE KINASE MB 1.5 ng/mL (0-5.0); CREATININE, SERUM 0.67 mg/dL (0.57-1.11); POTASSIUM 3.3 mmol/L (3.5-5.1)
[2021-01-08] MEDS ORDERED: REMDESIVIR 200MG/NS 100ML 200 MG IV ONE (16:30)
[2021-01-08] MEDS: FAMOTIDINE 20 MG/2 ML VIAL IV SCH (16:34)
[2021-01-08] MEDS ORDERED: ACETAMINOPHEN 325 MG TAB PO PRN (17:15)
[2021-01-08] MEDS: ENOXAPARIN SOD INJ 40 MG/0.4 ML SYR SC SCH (17:30)
[2021-01-08] MEDS ORDERED: SODIUM CHLORIDE 0.9% 50ML 50 ML ONE (18:26)
[2021-01-08] MEDS ORDERED: IOPAMIDOL 370 MG/ML 200 ML INFUS..BTL INJ ONE (18:27)
[2021-01-08 20:19] LABS: CREATINE KINASE MB 1.7 ng/mL (0-5.0)
[2021-01-09] VITALS (9 sets, daily range): BP systolic 108–122; BP diastolic 61–82
[2021-01-09 00:27] LABS: CREATINE KINASE MB 1.6 ng/mL (0-5.0)
[2021-01-09] MEDS: HYDROCODONE/APAP 10MG-325MG TAB PO PRN ×4 (03:19→21:01)
[2021-01-09] MEDS: FAMOTIDINE 20 MG/2 ML VIAL IV SCH ×2 (05:53→17:40)
[2021-01-09] MEDS ORDERED: ZOLPIDEM TARTRATE 5 MG TAB PO PRN (07:00)
[2021-01-09] MEDS ORDERED: DOCUSATE SODIUM 100 MG CAP PO PRN (07:00)
[2021-01-09 07:15] LABS: BASOPHILS % 0.3 % (0.0-1.0); HEMOGLOBIN 13.7 g/dL (12.0-16.0); LYMPHOCYTES # (AUTO) 1.2 (1.0-3.2); LYMPHOCYTES % 15.5 % (18.0-39.1); MEAN CORPUSCULAR HEMOGLOBIN 29.7 pg (28-32); MEAN CORPUSCULAR HGB CONC 32.6 g/dL (31-35); MEAN CORPUSCULAR VOLUME 91.1 fL (81-99); MONOCYTES # (AUTO) 0.5 (0.2-0.8); MONOCYTES % 6.3 % (4.4-11.3); NEUTROPHILS # (AUTO) 5.8 (2.1-6.9); NEUTROPHILS % 75.9 % (38.7-80.0); PLATELET COUNT 544 x10e3/uL (140-360); RED BLOOD COUNT 4.61 x10e6/uL (3.6-5.1); RED CELL DISTRIBUTION WIDTH 11.2 % (11.7-14.4)
[2021-01-09 08:01] LABS: ALBUMIN 3.2 g/dL (3.5-5.0); ALBUMIN/GLOBULIN RATIO 0.8 (0.8-2.0); ANION GAP 15.1 mmol/L (8-16); CALCIUM 9.1 mg/dL (8.4-10.2); CREATININE, SERUM 0.61 mg/dL (0.57-1.11); POTASSIUM 4.1 mmol/L (3.5-5.1)
[2021-01-09] MEDS: CEFTRIAXONE 1 GM in SODIUM CHLORIDE 0.9% 50ML 50 ML IV SCH (09:14)
[2021-01-09] MEDS: DEXAMETHASONE SOD PHOS 10 MG/1 ML VIAL IV SCH (09:14)
[2021-01-09 10:01] LABS: CREATINE KINASE MB 0.9 ng/mL (0-5.0)
[2021-01-09] MEDS: REMDESIVIR 100MG/NS 100ML 100 MG IV SCH (13:54)
[2021-01-09] MEDS: ENOXAPARIN SOD INJ 40 MG/0.4 ML SYR SC SCH (16:43)
[2021-01-09] MEDS: ZOLPIDEM TARTRATE 5 MG TAB PO PRN (21:01)
[2021-01-10] VITALS (11 sets, daily range): BP systolic 108–127; BP diastolic 61–96
[2021-01-10] MEDS: HYDROCODONE/APAP 10MG-325MG TAB PO PRN ×5 (05:13→21:16)
[2021-01-10] MEDS: FAMOTIDINE 20 MG/2 ML VIAL IV SCH ×2 (06:26→18:02)
[2021-01-10] MEDS: DEXAMETHASONE SOD PHOS 10 MG/1 ML VIAL IV SCH (09:20)
[2021-01-10] MEDS: CEFTRIAXONE 1 GM in SODIUM CHLORIDE 0.9% 50ML 50 ML IV SCH (09:21)
[2021-01-10] MEDS: REMDESIVIR 100MG/NS 100ML 100 MG IV SCH (13:43)
[2021-01-10] MEDS: ENOXAPARIN SOD INJ 40 MG/0.4 ML SYR SC SCH (17:54)
[2021-01-11] VITALS (8 sets, daily range): BP systolic 115–142; BP diastolic 62–84
[2021-01-11] MEDS: ZOLPIDEM TARTRATE 5 MG TAB PO PRN ×2 (01:33→20:37)
[2021-01-11] MEDS: HYDROCODONE/APAP 10MG-325MG TAB PO PRN ×5 (01:37→20:37)
[2021-01-11] MEDS: FAMOTIDINE 20 MG/2 ML VIAL IV SCH ×2 (06:38→17:12)
[2021-01-11] MEDS: DEXAMETHASONE SOD PHOS 10 MG/1 ML VIAL IV SCH (09:06)
[2021-01-11] MEDS: CEFTRIAXONE 1 GM in SODIUM CHLORIDE 0.9% 50ML 50 ML IV SCH (09:06)
[2021-01-11] MEDS: REMDESIVIR 100MG/NS 100ML 100 MG IV SCH (14:11)
[2021-01-11] MEDS: ENOXAPARIN SOD INJ 40 MG/0.4 ML SYR SC SCH (17:12)
[2021-01-12] VITALS: BP 119/79
[2021-01-12 04:00] VITALS: BP 131/68
[2021-01-12] MEDS: HYDROCODONE/APAP 10MG-325MG TAB PO PRN ×2 (04:51→09:03)
[2021-01-12 08:12] VITALS: BP 106/62
[2021-01-12] MEDS ORDERED: LORATADINE10 MG PO (08:27)
[2021-01-12] MEDS ORDERED: TESSALON PERLE100 MG PO (08:27)
[2021-01-12] MEDS ORDERED: PREDNISONE20 MG PO (08:27)
[2021-01-12] MEDS ORDERED: GUAIFENESIN-DM 15 ML PO (08:27)
[2021-01-12] MEDS ORDERED: ZITHROMAX500 MG PO (08:27)
[2021-01-12] MEDS ORDERED: VITAMIN C500 MG PO (08:27)
[2021-01-12] MEDS: DEXAMETHASONE SOD PHOS 10 MG/1 ML VIAL IV SCH (08:50)
[2021-01-12] MEDS: CEFTRIAXONE 1 GM in SODIUM CHLORIDE 0.9% 50ML 50 ML IV SCH (08:50)
[2021-01-12 09:04] VITALS: BP 106/62
[2021-01-12] MEDS: ONDANSETRON HCL INJ 2MG/ML 2ML 2 MG/ML VIAL IV PRN ×2 (10:42→10:43)
[2021-01-12 12:30] VITALS: BP 117/72
[2021-01-12] MEDS: REMDESIVIR 100MG/NS 100ML 100 MG IV SCH (13:00)
== END 2021-01-12 16:20 | disposition home or self-care (01) | DRG 177 ==
LOC: ER 15:10 → ERHOLD 16:19 → MED/SURG3 01-09 00:23
PROVIDERS: ADMIT Internal Medicine; ATTEND Internal Medicine
PROC: 8E0ZXY6 Isolation (ICD-10-PCS; principal; 2021-01-08)
PROC: XW033E5 Introduction of Remdesivir Anti-infective into Peripheral Vein, Percutaneous Approach, New Technology Group 5 (ICD-10-PCS; 2021-01-08)
DX: U07.1 COVID-19 (principal); J96.91 Respiratory failure, unspecified with hypoxia; J12.82 Pneumonia due to coronavirus disease 2019; G93.41 Metabolic encephalopathy; J96.01 Acute respiratory failure with hypoxia; E87.6 Hypokalemia; M32.9 Systemic lupus erythematosus, unspecified; K44.9 Diaphragmatic hernia without obstruction or gangrene; E87.8 Other disorders of electrolyte and fluid balance, not elsewhere classified
CPT/HCPCS: 36415; 71045; 71260; 80053; 82550; 82553; 82728; 84484; 85025; 85379; 85651; 86039; 86140; 86162; 86431; 87040; 93005; 96360; 96365; 97139; 99284; J0456; J0696; J1100; J1650; J7050; Q9967; U0002